=== PATIENT | female | born 1940 | race African-American/Black ===

== ENCOUNTER 2017-09-05 17:07 | Observation (INO) ==
[2017-09-05] MEDS ORDERED: DOCUSATE SODIUM 100 MG CAPSULE PO PRN (17:36)
[2017-09-05] MEDS ORDERED: ACETAMINOPHEN 325 MG TABLET PO PRN (17:36)
[2017-09-05] MEDS ORDERED: BISACODYL 5 MG TABLET PO PRN (17:36)
[2017-09-05] MEDS ORDERED: ONDANSETRON 4 MG/2 ML VIAL IV PRN (17:36)
[2017-09-05] MEDS ORDERED: ZALEPLON 5 MG CAPSULE PO PRN (17:36)
[2017-09-05] MEDS ORDERED: MORPHINE 2 MG/1 ML SYRINGE IV PRN (17:36)
[2017-09-05] MEDS ORDERED: MAGNESIUM SULF RIDER 2 GM in PREMIX 1 EACH IV PRN (17:36)
[2017-09-05] MEDS ORDERED: MAGNESIUM SULF RIDER 4 GM in PREMIX 1 EACH IV PRN (17:36)
[2017-09-05] MEDS ORDERED: diphenhydrAMINE CAP 25 MG CAPSULE PO PRN (17:45)
[2017-09-05] MEDS ORDERED: ceFAZolin 1,000 MG in SYRINGE 1 EACH IV ONE (17:48)
[2017-09-05 18:41] LABS: Basophils % 0.6 % (0.0-0.8); Eosinophils # 0.1 10*3/uL (0.0-0.87); Eosinophils % 2.2 % (0.00-10.9); Hematocrit 40.5 VOL% (35.7-47.0); Hemoglobin 12.7 GM/DL (12.0-16.0); Immature Granulocytes % 0.2 %; Immature Granulocytes Absolute 0.01 #; Lymphocytes # 1.9 10*3/uL (1.4-4.0); Lymphocytes % 36.4 % (21.3-54.2); Mean Corpuscular HGB Conc 31.4 GM/DL (32-36); Mean Corpuscular Hemoglobin 31 PG (27-34); Mean Corpuscular Volume 98.1 FL (87-102); Monocytes # 0.7 10*3/uL (0.11-0.8); Monocytes % 14.3 % (1.7-12.7); Neutrophils # 2.4 10*3/uL (1.4-7.4); Neutrophils % 46.3 % (38.7-73.9); Red Blood Count 4.13 MC/CUMM (3.8-5.5); White Blood Count 5.1 T/CUMM (4-12)
[2017-09-05 18:42] LABS: Platelet Count 97 T/CUMM (130-400)
[2017-09-05 19:08] LABS: Alanine Aminotransferase 33 U/L (13-56); Albumin 3.8 G/DL (3.4-5.0); Alkaline Phosphatase 114 U/L (45-117); Aspartate Amino Transferase 22 U/L (0-37); Bilirubin,Total < 0.39 MG/DL (0.2-1.0); Blood Urea Nitrogen 19 MG/DL (7-18); Calcium 9.4 MG/DL (8.5-10.1); Glucose 169 MG/DL (74-106); Osmolality,Calculated 293.7 MOS/KG (273-304); Potassium 4.3 MMOL/L (3.5-5.1); Sodium 145 MMOL/L (136-145); Total Protein 6.4 G/DL (6.4-8.3)
[2017-09-05 19:17] LABS: Platelet Estimate Decreased
[2017-09-06] MEDS: SODIUM CHLORIDE 0.9% 1,000 ML IV SCH ×2 (03:40→19:04)
[2017-09-06] MEDS ORDERED: ceFAZolin 1,000 MG in SYRINGE 1 EACH IV ONE ×2 (06:00)
[2017-09-06] MEDS ORDERED: diphenhydrAMINE CAP 25 MG CAPSULE PO ONE (06:00)
[2017-09-06] MEDS ORDERED: DIAZEPAM 5 MG TABLET PO ONE (06:00)
[2017-09-06] MEDS ORDERED: ceFAZolin 1,000 MG VIAL IRRIG ONE (06:00)
[2017-09-06 07:17] LABS: Basophils % 0.9 % (0.0-0.8); Eosinophils # 0.2 10*3/uL (0.0-0.87); Eosinophils % 4.2 % (0.00-10.9); Immature Granulocytes % 0.2 %; Immature Granulocytes Absolute 0.01 #; Lymphocytes # 2.3 10*3/uL (1.4-4.0); Lymphocytes % 49.7 % (21.3-54.2); Mean Corpuscular HGB Conc 31.7 GM/DL (32-36); Mean Corpuscular Hemoglobin 31 PG (27-34); Mean Corpuscular Volume 96.5 FL (87-102); Mean Platelet Volume 12.6 FL (9.6-12.0); Monocytes # 0.7 10*3/uL (0.11-0.8); Monocytes % 15.2 % (1.7-12.7); Neutrophils # 1.4 10*3/uL (1.4-7.4); Neutrophils % 29.8 % (38.7-73.9); Platelet Count 94 T/CUMM (130-400); Red Blood Count 4.25 MC/CUMM (3.8-5.5); Red Cell Distribution Width 15.9 % (9.3-17.3); White Blood Count 4.6 T/CUMM (4-12)
[2017-09-06 07:39] LABS: Giant Platelets Few; Hypochromasia 1+; Platelet Estimate Decreased
[2017-09-06 07:57] LABS: Albumin 3.7 G/DL (3.4-5.0); Bilirubin,Total 0.9 MG/DL (0.2-1.0); Calcium 9.5 MG/DL (8.5-10.1); Osmolality,Calculated 288.7 MOS/KG (273-304); Potassium 4.2 MMOL/L (3.5-5.1); Risk Ratio 2.83; Total Protein 6.6 G/DL (6.4-8.3); VLDL CHOLESTEROL 17.6 MG/DL
[2017-09-06 08:00] LABS: Calcium 9.4 MG/DL (8.5-10.1)
[2017-09-06 08:01] LABS: Osmolality,Calculated 288.7 MOS/KG (273-304); Potassium 4.2 MMOL/L (3.5-5.1)
[2017-09-06] MEDS: PANTOPRAZOLE 40 MG TABLET PO SCH (08:44)
[2017-09-06] MEDS ORDERED: LIDOCAINE 1% 20 ML VIAL ONE (11:09)
[2017-09-06] MEDS ORDERED: HEPARIN/NACL 0.9% 2 UNITS/ML 1,000 ML IV ONE (11:09)
[2017-09-06] MEDS ORDERED: ceFAZolin 1,000 MG VIAL ONE (11:09)
[2017-09-06] MEDS ORDERED: TISSUE ADHESIVE 1 EACH APPLICATOR TOP ONE (13:42)
[2017-09-06] MEDS ORDERED: oxyCODONE/ACETAMINOPHEN 5-325 MG TABLET PO PRN (14:09)
[2017-09-06] MEDS ORDERED: fentaNYL 100 MCG/2 ML VIAL ONE (15:18)
[2017-09-06] MEDS ORDERED: MIDAZOLAM 2 MG/2 ML VIAL ONE (15:18)
[2017-09-06] MEDS ORDERED: PROPOFOL 200 MG/20 ML VIAL IV ONE (15:18)
[2017-09-06] MEDS ORDERED: SODIUM CHLORIDE 0.9% 250 ML IV ONE (15:19)
[2017-09-06] MEDS ORDERED: ROCURONIUM 100 MG/10 ML VIAL IV ONE (15:19)
[2017-09-06] MEDS ORDERED: GLYCOPYRROLATE 0.4 MG/2 ML VIAL ONE (15:19)
[2017-09-06] MEDS ORDERED: NEOSTIGMINE 10 MG/10 ML VIAL ONE (15:19)
[2017-09-06] MEDS: ceFAZolin 1,000 MG in SYRINGE 1 EACH IV SCH (20:50)
[2017-09-07] MEDS: ceFAZolin 1,000 MG in SYRINGE 1 EACH IV SCH ×2 (04:11→14:12)
[2017-09-07 05:38] LABS: Basophils % 0.3 % (0.0-0.8); Eosinophils % 0.3 % (0.00-10.9); Hematocrit 35.7 VOL% (35.7-47.0); Hemoglobin 11.4 GM/DL (12.0-16.0); Immature Granulocytes % 0.3 %; Immature Granulocytes Absolute 0.02 #; Lymphocytes # 1.1 10*3/uL (1.4-4.0); Lymphocytes % 19.3 % (21.3-54.2); Mean Corpuscular HGB Conc 31.9 GM/DL (32-36); Mean Corpuscular Hemoglobin 31 PG (27-34); Mean Corpuscular Volume 96.2 FL (87-102); Mean Platelet Volume 14.1 FL (9.6-12.0); Monocytes # 0.9 10*3/uL (0.11-0.8); Monocytes % 15.7 % (1.7-12.7); Neutrophils # 3.7 10*3/uL (1.4-7.4); Neutrophils % 64.1 % (38.7-73.9); Platelet Count 72 T/CUMM (130-400); Red Blood Count 3.71 MC/CUMM (3.8-5.5); Red Cell Distribution Width 15.8 % (9.3-17.3); White Blood Count 5.9 T/CUMM (4-12)
[2017-09-07 05:46] LABS: Calcium 8.7 MG/DL (8.5-10.1); Magnesium 1.9 MG/DL (1.8-2.4); Osmolality,Calculated 295.3 MOS/KG (273-304); Potassium 3.9 MMOL/L (3.5-5.1)
[2017-09-07 06:50] LABS: Giant Platelets Few; Hypochromasia 1+; Lymphocytes 19 % (20-55); Platelet Estimate Decreased; Segmented Neutrophils 66 % (50-85); Total Cells Counted 100
[2017-09-07] MEDS ORDERED: DOCUSATE SODIUM 100 MG CAPSULE PO PRN (08:04)
[2017-09-07] MEDS ORDERED: CAMPHOR/MENTHOL LOTION 222 ML BOTTLE TOP PRN (08:04)
[2017-09-07] MEDS ORDERED: SIMETHICONE DROPS 40 MG/0.6 ML 30 ML BOTTLE PO PRN (08:04)
[2017-09-07] MEDS ORDERED: FLUTICASONE 50 MCG NASAL SPRAY 16 GM BOTTLE BOTH NARES PRN (08:04)
[2017-09-07] MEDS: ASCORBIC ACID 500 MG TABLET PO SCH ×2 (10:27→21:40)
[2017-09-07] MEDS: LOSARTAN 50 MG TABLET PO SCH (10:27)
[2017-09-07] MEDS: THEOPHYLLINE ER 300 MG TABLET PO SCH ×2 (10:27→21:40)
[2017-09-07] MEDS: POLYCARBOPHIL 625 MG TABLET PO SCH (10:27)
[2017-09-07] MEDS: PREGABALIN 100 MG CAPSULE PO SCH ×2 (10:27→21:41)
[2017-09-07] MEDS: cephALEXin 500 MG CAPSULE PO SCH ×2 (10:27→21:41)
[2017-09-07] MEDS: NEBIVOLOL 10 MG TABLET PO SCH (10:27)
[2017-09-07] MEDS: MULTIVITAMIN (CENTRUM) TABLET PO SCH (10:27)
[2017-09-07] MEDS: ALLOPURINOL 300 MG TABLET PO SCH (10:28)
[2017-09-07] MEDS: MAGNESIUM OXIDE 400 MG TABLET PO SCH (10:28)
[2017-09-07] MEDS: POTASSIUM CHLORIDE 20 MEQ TABLET PO SCH ×2 (10:28→21:40)
[2017-09-07] MEDS: FUROSEMIDE 20 MG TABLET PO SCH (10:28)
[2017-09-07] MEDS: INSULIN GLARGINE 100 UNIT/ML SUBCUT SCH ×2 (10:29→21:41)
[2017-09-07] MEDS: PANTOPRAZOLE 40 MG TABLET PO SCH (11:02)
[2017-09-07] MEDS: IPRATROPIUM 500 MCG/2.5 ML NEB RESP TX SCH ×4 (16:20→18:48)
[2017-09-08] MEDS: IPRATROPIUM 500 MCG/2.5 ML NEB RESP TX SCH ×2 (07:54→10:35)
[2017-09-08] MEDS: INSULIN GLARGINE 100 UNIT/ML SUBCUT SCH (09:29)
[2017-09-08] MEDS: ASCORBIC ACID 500 MG TABLET PO SCH (09:30)
[2017-09-08] MEDS: PREGABALIN 100 MG CAPSULE PO SCH (09:30)
[2017-09-08] MEDS: POTASSIUM CHLORIDE 20 MEQ TABLET PO SCH (09:30)
[2017-09-08] MEDS: NEBIVOLOL 10 MG TABLET PO SCH (09:31)
[2017-09-08] MEDS: cephALEXin 500 MG CAPSULE PO SCH (09:31)
[2017-09-08] MEDS: MULTIVITAMIN (CENTRUM) TABLET PO SCH (09:31)
[2017-09-08] MEDS: ALLOPURINOL 300 MG TABLET PO SCH (09:31)
[2017-09-08] MEDS: MAGNESIUM OXIDE 400 MG TABLET PO SCH (09:32)
[2017-09-08] MEDS: FUROSEMIDE 20 MG TABLET PO SCH (09:32)
[2017-09-08] MEDS: THEOPHYLLINE ER 300 MG TABLET PO SCH (09:39)
[2017-09-08 12:19] VITALS: BP 129/66
[2017-09-08] MEDS: LOSARTAN 50 MG TABLET PO SCH (12:40)
[2017-09-08] MEDS: POLYCARBOPHIL 625 MG TABLET PO SCH (12:41)
[2017-09-08] MEDS: PANTOPRAZOLE 40 MG TABLET PO SCH (12:43)
== END 2017-09-08 15:01 ==
LOC: N.TELEN
PROVIDERS: ADMIT Internal Medicine Clinical Cardiac Electrophysiology; ATTEND Internal Medicine Clinical Cardiac Electrophysiology

== ENCOUNTER 2018-05-23 10:01 | Inpatient (IN) ==
[2018-05-23] MEDS ORDERED: ALBUTEROL/IPRATROPIUM 3 ML NEB RESP TX STA (10:11)
[2018-05-23] MEDS ORDERED: methylPREDNISolone SOD SUC 125 MG/2 ML VIAL IV STA (10:13)
[2018-05-23] MEDS ORDERED: FAMOTIDINE 20 MG/2 ML VIAL IV STA (10:19)
[2018-05-23 10:48] LABS: Basophils % 0.5 % (0.0-0.8); Eosinophils # 0.2 10*3/uL (0.0-0.87); Hematocrit 26.1 VOL% (35.7-47.0); Hemoglobin 7.7 GM/DL (12.0-16.0); Immature Granulocytes % 0.2 %; Immature Granulocytes Absolute 0.01 #; Lymphocytes # 1.5 10*3/uL (1.4-4.0); Lymphocytes % 35.3 % (21.3-54.2); Mean Corpuscular HGB Conc 29.5 GM/DL (32-36); Mean Corpuscular Hemoglobin 27 PG (27-34); Mean Corpuscular Volume 92.2 FL (87-102); Mean Platelet Volume 13.8 FL (9.6-12.0); Monocytes # 0.7 10*3/uL (0.11-0.8); Monocytes % 16.6 % (1.7-12.7); Neutrophils # 1.8 10*3/uL (1.4-7.4); Neutrophils % 42.4 % (38.7-73.9); Platelet Count 72 T/CUMM (130-400); Red Blood Count 2.83 MC/CUMM (3.8-5.5); Red Cell Distribution Width 17.2 % (9.3-17.3); White Blood Count 4.2 T/CUMM (4-12)
[2018-05-23 10:49] LABS: Allen Test Positive
[2018-05-23 10:50] LABS: ABG Base Excess 10.3 MMOL/L (-2.5-2.5); ABG HCO3 34.1 MMOL/L (20-26); ABG Oxygen Saturation 99.5 % (95-100); ABG PH 7.334 (7.35-7.45)
[2018-05-23 11:12] LABS: Alanine Aminotransferase 25 U/L (13-56); Albumin 3.5 G/DL (3.4-5.0); Alkaline Phosphatase 96 U/L (45-117); Aspartate Amino Transferase 22 U/L (0-37); Bilirubin,Total < 0.39 MG/DL (0.2-1.0); Blood Urea Nitrogen 20 MG/DL (7-18); Calcium 9.4 MG/DL (8.5-10.1); Glucose 112 MG/DL (74-106); Osmolality,Calculated 297.3 MOS/KG (273-304); Potassium 3.9 MMOL/L (3.5-5.1); Sodium 148 MMOL/L (136-145); Total Protein 6.2 G/DL (6.4-8.3)
[2018-05-23 11:25] LABS: Band Neutrophils 2 % (0-10); Eosinophils 2 % (0-10); Lymphocytes 35 % (20-55); Segmented Neutrophils 48 % (50-85); Total Cells Counted 100
[2018-05-23 11:26] LABS: Anisocytosis Slight; Hypochromasia Slight; Macrocytosis 1+; Platelet Estimate Decreased; Polychromasia Slight
[2018-05-23 11:27] LABS: Giant Platelets Few
[2018-05-23 11:37] LABS: Apearance,Urine CLEAR (Clear); Bacteria,Urine Occasional /HPF (Few); Bilirubin,Urine Negative (Negative); Blood, Urine Negative (Negative); Glucose,Urine (UA) Negative (Negative); Hyaline Casts,Urine 1 /LPF (0-3); Ketones,Urine Negative (Negative); Mucus,Urine Occasional /LPF (Occasional); Nitrite,Urine Negative (Negative); Protein,Urine Negative; RBC,Urine 1 /HPF (0-4); Squamous Epithelial Cell,Urine Occasional /HPF (0-10); Urine Color Yellow (Yellow); Urine Specific Gravity 1.014 (1.001-1.035); Urine Urobilinogen < 2.0 EU/DL (0.2-1.0); WBC,Urine <1 /HPF (0-6)
[2018-05-23] MEDS ORDERED: ONDANSETRON 4 MG/2 ML VIAL IV PRN (12:34)
[2018-05-23] MEDS ORDERED: ACETAMINOPHEN 325 MG TABLET PO PRN (12:34)
[2018-05-23] MEDS ORDERED: GLUCAGON 1 MG VIAL IM PRN (12:45)
[2018-05-23] MEDS ORDERED: DEXTROSE 50% 25 GM/50 ML VIAL IV PRN (12:45)
[2018-05-23] MEDS ORDERED: CAMPHOR/MENTHOL LOTION 222 ML BOTTLE TOP PRN (12:46)
[2018-05-23] MEDS ORDERED: SIMETHICONE DROPS 40 MG/0.6 ML 30 ML BOTTLE PO PRN (12:46)
[2018-05-23] MEDS ORDERED: DOCUSATE SODIUM 100 MG CAPSULE PO PRN (12:46)
[2018-05-23] MEDS ORDERED: FLUTICASONE 50 MCG NASAL SPRAY 16 GM BOTTLE BOTH NARES PRN (12:46)
[2018-05-23] MEDS ORDERED: diphenhydrAMINE 50 MG/1 ML VIAL IV SCH (13:00)
[2018-05-23] MEDS ORDERED: IPRATROPIUM 500 MCG/2.5 ML NEB RESP TX SCH (15:00)
[2018-05-23] MEDS: POTASSIUM CHLORIDE 20 MEQ TABLET PO SCH ×2 (15:48→21:14)
[2018-05-23] MEDS: SULFACETAMIDE 10% OPH SOLN 15 ML BOTTLE BOTH EYES SCH ×3 (15:48→21:15)
[2018-05-23] MEDS: FUROSEMIDE 40 MG TABLET PO SCH (15:48)
[2018-05-23] MEDS: diphenhydrAMINE 25 MG/10 ML UDCUP PO SCH (15:49)
[2018-05-23] MEDS: INSULIN REGULAR 100 UNIT/ML SUBCUT SCH ×2 (15:54→21:15)
[2018-05-23] MEDS: ALBUTEROL/IPRATROPIUM 3 ML NEB RESP TX SCH (16:18)
[2018-05-23] MEDS: THEOPHYLLINE ER (24 HR) 300 MG CAPSULE PO SCH (18:49)
[2018-05-23] MEDS ORDERED: LEVALBUTEROL 1.25 MG/3 ML NEB RESP TX SCH (19:00)
[2018-05-23] MEDS: CHLORHEXIDINE 0.12% ORAL RINSE 60 ML BOTTLE SWISH/SPIT SCH (21:13)
[2018-05-23] MEDS: ASCORBIC ACID 500 MG TABLET PO SCH (21:13)
[2018-05-23] MEDS: CARVEDILOL 25 MG TABLET PO SCH (21:14)
[2018-05-23] MEDS: INSULIN GLARGINE 100 UNIT/ML SUBCUT SCH (21:15)
[2018-05-23] MEDS: TRAVOPROST 0.004% OPH SOLN 2.5 ML BOTTLE BOTH EYES SCH (21:15)
[2018-05-23 23:11] LABS: Hematocrit 26.1 VOL% (35.7-47.0); Hemoglobin 7.8 GM/DL (12.0-16.0)
[2018-05-24] MEDS: ALBUTEROL/IPRATROPIUM 3 ML NEB RESP TX SCH ×5 (01:13→19:35)
[2018-05-24] MEDS: diphenhydrAMINE 25 MG/10 ML UDCUP PO SCH ×2 (02:55→14:24)
[2018-05-24 05:43] LABS: Immature Granulocytes % 1.1 %; Immature Granulocytes Absolute 0.03 #; Lymphocytes # 0.6 10*3/uL (1.4-4.0); Lymphocytes % 22.5 % (21.3-54.2); Mean Corpuscular HGB Conc 30.4 GM/DL (32-36); Mean Corpuscular Hemoglobin 27 PG (27-34); Mean Corpuscular Volume 88.5 FL (87-102); Mean Platelet Volume 14.6 FL (9.6-12.0); Monocytes # 0.3 10*3/uL (0.11-0.8); Monocytes % 8.9 % (1.7-12.7); NRBC # 0.05 10*3/uL; Neutrophils # 1.9 10*3/uL (1.4-7.4); Neutrophils % 67.5 % (38.7-73.9); Red Cell Distribution Width 17.2 % (9.3-17.3)
[2018-05-24 05:47] LABS: Platelet Count 59 T/CUMM (130-400); White Blood Count 2.8 T/CUMM (4-12)
[2018-05-24 06:05] LABS: Calcium 8.9 MG/DL (8.5-10.1); Osmolality,Calculated 298.3 MOS/KG (273-304)
[2018-05-24 06:08] LABS: Hypochromasia 1+; Platelet Estimate Decreased
[2018-05-24 06:09] LABS: Macrocytosis Slight
[2018-05-24] MEDS: SULFACETAMIDE 10% OPH SOLN 15 ML BOTTLE BOTH EYES SCH ×6 (06:24→21:29)
[2018-05-24] MEDS ORDERED: SODIUM CHLORIDE 0.9% 1,000 ML IV PRN (07:25)
[2018-05-24] MEDS ORDERED: TIOTROPIUM INH SCH (09:00)
[2018-05-24] MEDS ORDERED: methylPREDNISolone SOD SUC 40 MG/1 ML VIAL IV SCH (09:00)
[2018-05-24] MEDS: INSULIN REGULAR 100 UNIT/ML SUBCUT SCH ×4 (09:30→21:37)
[2018-05-24] MEDS: FAMOTIDINE 20 MG TABLET PO SCH (09:31)
[2018-05-24] MEDS: CARVEDILOL 25 MG TABLET PO SCH ×2 (09:31→21:30)
[2018-05-24] MEDS: amLODIPine 5 MG TABLET PO SCH (09:31)
[2018-05-24] MEDS: MAGNESIUM OXIDE 400 MG TABLET PO SCH (09:31)
[2018-05-24] MEDS: methylPREDNISolone SOD SUC 40 MG/1 ML VIAL IV SCH ×2 (09:31→18:35)
[2018-05-24] MEDS: MONTELUKAST 10 MG TABLET PO SCH (09:31)
[2018-05-24] MEDS: ASPIRIN EC 325 MG TABLET PO SCH (09:31)
[2018-05-24] MEDS: PREGABALIN 100 MG CAPSULE PO SCH ×2 (09:31→21:31)
[2018-05-24] MEDS: POTASSIUM CHLORIDE 20 MEQ TABLET PO SCH ×3 (09:31→21:30)
[2018-05-24] MEDS: ALLOPURINOL 300 MG TABLET PO SCH (09:31)
[2018-05-24] MEDS: FUROSEMIDE 40 MG TABLET PO SCH ×3 (09:32→15:44)
[2018-05-24] MEDS: MULTIVITAMIN (CENTRUM) TABLET PO SCH (09:32)
[2018-05-24] MEDS: POLYCARBOPHIL 625 MG TABLET PO SCH (09:32)
[2018-05-24] MEDS: ASCORBIC ACID 500 MG TABLET PO SCH ×2 (09:32→21:31)
[2018-05-24] MEDS: LINACLOTIDE 145 MCG CAPSULE PO SCH (09:33)
[2018-05-24] MEDS: CHLORHEXIDINE 0.12% ORAL RINSE 60 ML BOTTLE SWISH/SPIT SCH ×2 (09:33→21:31)
[2018-05-24] MEDS: fentaNYL 25 MCG/HR PATCH TRANSDERM SCH (09:34)
[2018-05-24] MEDS ORDERED: SKIN HEALING OINT (AQUAPHOR) 50 GM TUBE TOP PRN (12:43)
[2018-05-24 18:40] LABS: Hematocrit 31.7 VOL% (35.7-47.0)
[2018-05-24 18:42] LABS: Hemoglobin 10.1 GM/DL (12.0-16.0)
[2018-05-24] MEDS: TRAVOPROST 0.004% OPH SOLN 2.5 ML BOTTLE BOTH EYES SCH (21:29)
[2018-05-24] MEDS: INSULIN GLARGINE 100 UNIT/ML SUBCUT SCH (21:31)
[2018-05-25] MEDS: diphenhydrAMINE 25 MG/10 ML UDCUP PO SCH ×2 (03:10→16:33)
[2018-05-25 05:17] LABS: ABG Base Excess 12.5 MMOL/L (-2.5-2.5); ABG HCO3 39.7 MMOL/L (20-26); ABG Oxygen Saturation 97.8 % (95-100); ABG PCO2 68.4 MM HG (35-48); ABG PH 7.382 (7.35-7.45); ABG PO2 116.7 MM HG (80-95); ABG TCO2 41.8 MMOL/L (23-27)
[2018-05-25 06:34] LABS: Basophils % 0.2 % (0.0-0.8); Eosinophils % 0.4 % (0.00-10.9); Hematocrit 30.4 VOL% (35.7-47.0); Hemoglobin 9.6 GM/DL (12.0-16.0); Immature Granulocytes % 0.4 %; Immature Granulocytes Absolute 0.02 #; Lymphocytes # 1.4 10*3/uL (1.4-4.0); Lymphocytes % 30.3 % (21.3-54.2); Mean Corpuscular HGB Conc 31.6 GM/DL (32-36); Mean Corpuscular Hemoglobin 28 PG (27-34); Mean Corpuscular Volume 88.6 FL (87-102); Monocytes # 0.8 10*3/uL (0.11-0.8); Monocytes % 17.2 % (1.7-12.7); NRBC # 0.02 10*3/uL; Neutrophils # 2.4 10*3/uL (1.4-7.4); Neutrophils % 51.5 % (38.7-73.9); Platelet Count 66 T/CUMM (130-400); Red Blood Count 3.43 MC/CUMM (3.8-5.5); Red Cell Distribution Width 16.1 % (9.3-17.3); White Blood Count 4.7 T/CUMM (4-12)
[2018-05-25] MEDS: SULFACETAMIDE 10% OPH SOLN 15 ML BOTTLE BOTH EYES SCH ×6 (06:44→20:36)
[2018-05-25] MEDS: methylPREDNISolone SOD SUC 40 MG/1 ML VIAL IV SCH ×2 (06:46→20:37)
[2018-05-25 07:03] LABS: Calcium 9.1 MG/DL (8.5-10.1); Osmolality,Calculated 289.7 MOS/KG (273-304)
[2018-05-25 07:35] LABS: Band Neutrophils 2 % (0-10); Lymphocytes 34 % (20-55); Nucleated Red Blood Cells 1 (0-5); Platelet Estimate Decreased; Segmented Neutrophils 49 % (50-85); Total Cells Counted 100
[2018-05-25 07:36] LABS: Hypochromasia 2+; Ovalocytes 1+; Stomatocytes 1+
[2018-05-25] MEDS: ALBUTEROL/IPRATROPIUM 3 ML NEB RESP TX SCH ×4 (08:00→19:47)
[2018-05-25] MEDS: PREGABALIN 100 MG CAPSULE PO SCH ×2 (09:35→20:39)
[2018-05-25] MEDS: FAMOTIDINE 20 MG TABLET PO SCH (09:36)
[2018-05-25] MEDS: FUROSEMIDE 40 MG TABLET PO SCH ×2 (09:37→16:36)
[2018-05-25] MEDS: amLODIPine 5 MG TABLET PO SCH (09:37)
[2018-05-25] MEDS: ASPIRIN EC 325 MG TABLET PO SCH (09:37)
[2018-05-25] MEDS: MONTELUKAST 10 MG TABLET PO SCH (09:38)
[2018-05-25] MEDS: ALLOPURINOL 300 MG TABLET PO SCH (09:40)
[2018-05-25] MEDS: ASCORBIC ACID 500 MG TABLET PO SCH ×2 (09:41→20:39)
[2018-05-25] MEDS: LINACLOTIDE 145 MCG CAPSULE PO SCH (09:41)
[2018-05-25] MEDS: POTASSIUM CHLORIDE 20 MEQ TABLET PO SCH ×3 (09:42→20:39)
[2018-05-25] MEDS: POLYCARBOPHIL 625 MG TABLET PO SCH (09:42)
[2018-05-25] MEDS: MAGNESIUM OXIDE 400 MG TABLET PO SCH (09:42)
[2018-05-25] MEDS: CHLORHEXIDINE 0.12% ORAL RINSE 60 ML BOTTLE SWISH/SPIT SCH ×2 (09:42→20:39)
[2018-05-25] MEDS: MULTIVITAMIN (CENTRUM) TABLET PO SCH (09:44)
[2018-05-25] MEDS: INSULIN REGULAR 100 UNIT/ML SUBCUT SCH ×4 (09:44→20:17)
[2018-05-25] MEDS: CARVEDILOL 25 MG TABLET PO SCH ×2 (09:44→20:39)
[2018-05-25] MEDS: THEOPHYLLINE ER (24 HR) 300 MG CAPSULE PO SCH (17:48)
[2018-05-25] MEDS: INSULIN GLARGINE 100 UNIT/ML SUBCUT SCH (20:17)
[2018-05-25] MEDS: TRAVOPROST 0.004% OPH SOLN 2.5 ML BOTTLE BOTH EYES SCH (20:36)
[2018-05-26] MEDS: diphenhydrAMINE 25 MG/10 ML UDCUP PO SCH ×2 (02:59→16:16)
[2018-05-26] MEDS: SULFACETAMIDE 10% OPH SOLN 15 ML BOTTLE BOTH EYES SCH ×6 (06:28→20:54)
[2018-05-26] MEDS: INSULIN REGULAR 100 UNIT/ML SUBCUT SCH ×4 (07:41→20:53)
[2018-05-26] MEDS: ALBUTEROL/IPRATROPIUM 3 ML NEB RESP TX SCH ×4 (07:59→19:42)
[2018-05-26] MEDS: methylPREDNISolone SOD SUC 40 MG/1 ML VIAL IV SCH ×2 (08:13→19:13)
[2018-05-26] MEDS: FUROSEMIDE 40 MG TABLET PO SCH ×2 (08:14→16:17)
[2018-05-26] MEDS ORDERED: hydrALAZINE 25 MG TABLET ONE (08:26)
[2018-05-26] MEDS: PREGABALIN 100 MG CAPSULE PO SCH ×2 (09:01→20:53)
[2018-05-26] MEDS: ASCORBIC ACID 500 MG TABLET PO SCH ×2 (09:01→20:53)
[2018-05-26] MEDS: MAGNESIUM OXIDE 400 MG TABLET PO SCH (09:01)
[2018-05-26] MEDS: POTASSIUM CHLORIDE 20 MEQ TABLET PO SCH ×3 (09:01→20:53)
[2018-05-26] MEDS: MONTELUKAST 10 MG TABLET PO SCH (09:01)
[2018-05-26] MEDS: ASPIRIN EC 325 MG TABLET PO SCH (09:02)
[2018-05-26] MEDS: POLYCARBOPHIL 625 MG TABLET PO SCH (09:02)
[2018-05-26] MEDS: FAMOTIDINE 20 MG TABLET PO SCH (09:02)
[2018-05-26] MEDS: ALLOPURINOL 300 MG TABLET PO SCH (09:02)
[2018-05-26] MEDS: amLODIPine 5 MG TABLET PO SCH (09:02)
[2018-05-26] MEDS: MULTIVITAMIN (CENTRUM) TABLET PO SCH (09:02)
[2018-05-26] MEDS: CARVEDILOL 25 MG TABLET PO SCH ×2 (09:02→20:53)
[2018-05-26] MEDS: CHLORHEXIDINE 0.12% ORAL RINSE 60 ML BOTTLE SWISH/SPIT SCH ×2 (09:05→20:54)
[2018-05-26] MEDS: LINACLOTIDE 145 MCG CAPSULE PO SCH (09:06)
[2018-05-26] MEDS: TRAVOPROST 0.004% OPH SOLN 2.5 ML BOTTLE BOTH EYES SCH (20:54)
[2018-05-26] MEDS: INSULIN GLARGINE 100 UNIT/ML SUBCUT SCH (20:54)
[2018-05-27] MEDS: diphenhydrAMINE 25 MG/10 ML UDCUP PO SCH (02:59)
[2018-05-27] MEDS: SULFACETAMIDE 10% OPH SOLN 15 ML BOTTLE BOTH EYES SCH ×3 (05:31→12:46)
[2018-05-27] MEDS: ALBUTEROL/IPRATROPIUM 3 ML NEB RESP TX SCH ×2 (08:52→11:52)
[2018-05-27] MEDS: ALLOPURINOL 300 MG TABLET PO SCH (10:08)
[2018-05-27] MEDS: LINACLOTIDE 145 MCG CAPSULE PO SCH (10:08)
[2018-05-27] MEDS: FAMOTIDINE 20 MG TABLET PO SCH (10:09)
[2018-05-27] MEDS: CARVEDILOL 25 MG TABLET PO SCH (10:09)
[2018-05-27] MEDS: ASCORBIC ACID 500 MG TABLET PO SCH (10:09)
[2018-05-27] MEDS: MONTELUKAST 10 MG TABLET PO SCH (10:10)
[2018-05-27] MEDS: MULTIVITAMIN (CENTRUM) TABLET PO SCH (10:10)
[2018-05-27] MEDS: amLODIPine 5 MG TABLET PO SCH (10:10)
[2018-05-27] MEDS: POTASSIUM CHLORIDE 20 MEQ TABLET PO SCH (10:10)
[2018-05-27] MEDS: MAGNESIUM OXIDE 400 MG TABLET PO SCH (10:10)
[2018-05-27] MEDS: POLYCARBOPHIL 625 MG TABLET PO SCH (10:10)
[2018-05-27] MEDS: FUROSEMIDE 40 MG TABLET PO SCH (10:11)
[2018-05-27] MEDS: PREGABALIN 100 MG CAPSULE PO SCH (10:11)
[2018-05-27] MEDS: methylPREDNISolone SOD SUC 40 MG/1 ML VIAL IV SCH (10:11)
[2018-05-27] MEDS: fentaNYL 25 MCG/HR PATCH TRANSDERM SCH (10:11)
[2018-05-27] MEDS: ASPIRIN EC 325 MG TABLET PO SCH (10:11)
[2018-05-27] MEDS: CHLORHEXIDINE 0.12% ORAL RINSE 60 ML BOTTLE SWISH/SPIT SCH (10:22)
[2018-05-27] MEDS: INSULIN REGULAR 100 UNIT/ML SUBCUT SCH ×2 (10:23→12:46)
[2018-05-27 12:26] VITALS: BP 163/80
== END 2018-05-27 14:45 | DRG 916 ==
LOC: EDBD → EDUNIT# → N.ED 10:01 → SUATTDRO 12:34 → N.EDINP 12:34 → N.5E 14:16
PROVIDERS: ATTEND Internal Medicine

== ENCOUNTER 2018-07-16 13:24 | Observation (INO) ==
[2018-07-16] MEDS ORDERED: ASPIRIN 325 MG TABLET PO STA (14:00)
[2018-07-16 14:36] LABS: Alanine Aminotransferase 20 U/L (13-56); Albumin 3.5 G/DL (3.4-5.0); Alkaline Phosphatase 103 U/L (45-117); Aspartate Amino Transferase 17 U/L (0-37); Bilirubin,Total < 0.39 MG/DL (0.2-1.0); Blood Urea Nitrogen 10 MG/DL (7-18); Calcium 8.9 MG/DL (8.5-10.1); Glucose 145 MG/DL (74-106); Osmolality,Calculated 293.4 MOS/KG (273-304); Potassium 3.9 MMOL/L (3.5-5.1); Sodium 147 MMOL/L (136-145); Total Protein 6.2 G/DL (6.4-8.3)
[2018-07-16 14:38] LABS: Basophils % 0.5 % (0.0-0.8); Eosinophils # 0.1 10*3/uL (0.0-0.87); Eosinophils % 2.4 % (0.00-10.9); Hematocrit 31.7 VOL% (35.7-47.0); Hemoglobin 9.4 GM/DL (12.0-16.0); Immature Granulocytes % 0.5 %; Immature Granulocytes Absolute 0.02 #; Lymphocytes # 1.2 10*3/uL (1.4-4.0); Lymphocytes % 29.6 % (21.3-54.2); Mean Corpuscular HGB Conc 29.7 GM/DL (32-36); Mean Corpuscular Hemoglobin 28 PG (27-34); Mean Corpuscular Volume 93.8 FL (87-102); Monocytes # 0.8 10*3/uL (0.11-0.8); Monocytes % 20.4 % (1.7-12.7); Neutrophils # 1.9 10*3/uL (1.4-7.4); Neutrophils % 46.6 % (38.7-73.9); Platelet Count 63 T/CUMM (130-400); Red Blood Count 3.38 MC/CUMM (3.8-5.5); Red Cell Distribution Width 18.6 % (9.3-17.3); White Blood Count 4.1 T/CUMM (4-12)
[2018-07-16] MEDS ORDERED: DEXTROSE 50% 25 GM/50 ML VIAL IV PRN (16:31)
[2018-07-16] MEDS ORDERED: GLUCAGON 1 MG VIAL IM PRN (16:31)
[2018-07-16] MEDS ORDERED: ONDANSETRON 4 MG/2 ML VIAL IV PRN (16:31)
[2018-07-16] MEDS ORDERED: CAMPHOR/MENTHOL LOTION 222 ML BOTTLE TOP PRN (16:34)
[2018-07-16] MEDS ORDERED: FLUTICASONE 50 MCG NASAL SPRAY 16 GM BOTTLE BOTH NARES PRN (16:34)
[2018-07-16] MEDS ORDERED: SIMETHICONE DROPS 40 MG/0.6 ML 30 ML BOTTLE PO PRN (16:34)
[2018-07-16] MEDS ORDERED: LABETALOL 20 MG/4 ML SYRINGE IV PRN (16:55)
[2018-07-16 17:21] LABS: Eosinophils 2 % (0-10); Lymphocytes 27 % (20-55); Segmented Neutrophils 48 % (50-85); Total Cells Counted 100
[2018-07-16 17:32] LABS: Platelet Estimate Decreased
[2018-07-16 17:34] LABS: Hypochromasia 1+
[2018-07-16 17:35] LABS: Target Cells Few
[2018-07-16] MEDS: IPRATROPIUM 500 MCG/2.5 ML NEB RESP TX SCH (19:19)
[2018-07-16] MEDS: ALBUTEROL 2.5 MG/3 ML NEB RESP TX SCH (19:19)
[2018-07-16] MEDS ORDERED: THEOPHYLLINE ER (24 HR) 300 MG CAPSULE PO SCH (21:00)
[2018-07-16] MEDS: FAMOTIDINE 20 MG TABLET PO SCH (21:38)
[2018-07-16] MEDS: POTASSIUM CHLORIDE 20 MEQ TABLET PO SCH (21:39)
[2018-07-16] MEDS: DOCUSATE SODIUM 100 MG CAPSULE PO SCH (21:39)
[2018-07-16] MEDS: FUROSEMIDE 40 MG TABLET PO SCH (21:39)
[2018-07-16] MEDS: ASCORBIC ACID 500 MG TABLET PO SCH (21:39)
[2018-07-16] MEDS: INSULIN REGULAR 100 UNIT/ML SUBCUT SCH (21:40)
[2018-07-16] MEDS: CARVEDILOL 25 MG TABLET PO SCH (21:40)
[2018-07-16] MEDS: INSULIN GLARGINE 100 UNIT/ML SUBCUT SCH (21:40)
[2018-07-16] MEDS: TRAVOPROST 0.004% OPH SOLN 2.5 ML BOTTLE BOTH EYES SCH (21:42)
[2018-07-16] MEDS: ROSUVASTATIN 20 MG TABLET PO SCH (21:42)
[2018-07-16] MEDS: CARBOXYMETHYLCELLULOSE 1% OPH SOLN BOTH EYES SCH (21:42)
[2018-07-17] MEDS: IPRATROPIUM 500 MCG/2.5 ML NEB RESP TX SCH ×4 (01:03→20:17)
[2018-07-17] MEDS: ACETAMINOPHEN 325 MG TABLET PO PRN ×2 (05:37→20:17)
[2018-07-17 05:48] LABS: Apearance,Urine Slightly Hazy (Clear); Bacteria,Urine Few /HPF (Few); Bilirubin,Urine Negative (Negative); Blood, Urine Negative (Negative); Glucose,Urine (UA) Negative (Negative); Hyaline Casts,Urine 3 /LPF (0-3); Ketones,Urine Negative (Negative); Mucus,Urine Occasional /LPF (Occasional); Nitrite,Urine Positive (Negative); Protein,Urine Negative; RBC,Urine 1 /HPF (0-4); Squamous Epithelial Cell,Urine Occasional /HPF (0-10); Urine Color Yellow (Yellow); Urine Urobilinogen < 2.0 EU/DL (0.2-1.0); WBC,Urine 5 /HPF (0-6)
[2018-07-17 06:29] LABS: Basophils % 0.4 % (0.0-0.8); Eosinophils # 0.1 10*3/uL (0.0-0.87); Hematocrit 28.8 VOL% (35.7-47.0); Hemoglobin 8.4 GM/DL (12.0-16.0); Immature Granulocytes % 0.2 %; Immature Granulocytes Absolute 0.01 #; Lymphocytes # 1.1 10*3/uL (1.4-4.0); Lymphocytes % 24.2 % (21.3-54.2); Mean Corpuscular HGB Conc 29.2 GM/DL (32-36); Mean Corpuscular Hemoglobin 27 PG (27-34); Mean Corpuscular Volume 93.5 FL (87-102); Monocytes # 0.7 10*3/uL (0.11-0.8); Neutrophils # 2.6 10*3/uL (1.4-7.4); Neutrophils % 58.2 % (38.7-73.9); Platelet Count 62 T/CUMM (130-400); Red Blood Count 3.08 MC/CUMM (3.8-5.5); Red Cell Distribution Width 18.5 % (9.3-17.3); White Blood Count 4.5 T/CUMM (4-12)
[2018-07-17 06:53] LABS: Eosinophils 1 % (0-10); Hypochromasia 1+; Lymphocytes 33 % (20-55); Platelet Estimate Decreased; Segmented Neutrophils 56 % (50-85); Total Cells Counted 100
[2018-07-17 07:07] LABS: Calcium 8.7 MG/DL (8.5-10.1); Osmolality,Calculated 290.6 MOS/KG (273-304); Potassium 3.5 MMOL/L (3.5-5.1); Risk Ratio 3.41; Thyroid Stimulating Hormone 1.1 uIU/ml (0.358-3.74); VLDL CHOLESTEROL 18.4 MG/DL
[2018-07-17] MEDS: ALBUTEROL 2.5 MG/3 ML NEB RESP TX SCH ×3 (07:50→20:17)
[2018-07-17] MEDS ORDERED: TIOTROPIUM INH SCH (09:00)
[2018-07-17] MEDS: INSULIN REGULAR 100 UNIT/ML SUBCUT SCH ×4 (09:55→20:18)
[2018-07-17] MEDS: FAMOTIDINE 20 MG TABLET PO SCH ×2 (09:57→20:16)
[2018-07-17] MEDS: CARBOXYMETHYLCELLULOSE 1% OPH SOLN BOTH EYES SCH ×2 (09:57→20:20)
[2018-07-17] MEDS: MAGNESIUM OXIDE 400 MG TABLET PO SCH (09:57)
[2018-07-17] MEDS: DOCUSATE SODIUM 100 MG CAPSULE PO SCH ×2 (09:57→20:18)
[2018-07-17] MEDS: CARVEDILOL 25 MG TABLET PO SCH ×2 (09:58→20:17)
[2018-07-17] MEDS: ALLOPURINOL 300 MG TABLET PO SCH (09:58)
[2018-07-17] MEDS: ASCORBIC ACID 500 MG TABLET PO SCH ×2 (09:58→20:16)
[2018-07-17] MEDS: FUROSEMIDE 40 MG TABLET PO SCH ×2 (09:58→20:17)
[2018-07-17] MEDS: MULTIVITAMIN (CENTRUM) TABLET PO SCH (09:58)
[2018-07-17] MEDS: MONTELUKAST 10 MG TABLET PO SCH (09:58)
[2018-07-17] MEDS: LORATADINE 10 MG TABLET PO SCH (09:59)
[2018-07-17] MEDS: ASPIRIN EC 325 MG TABLET PO SCH (09:59)
[2018-07-17] MEDS: POTASSIUM CHLORIDE 20 MEQ TABLET PO SCH ×3 (09:59→20:18)
[2018-07-17] MEDS: amLODIPine 5 MG TABLET PO SCH (09:59)
[2018-07-17] MEDS: LINACLOTIDE 145 MCG CAPSULE PO SCH (10:03)
[2018-07-17] MEDS: POLYCARBOPHIL 625 MG TABLET PO SCH (10:05)
[2018-07-17 11:37] LABS: Folate 17.8 NG/ML (5.4-24.0)
[2018-07-17 11:38] LABS: % Iron Saturation 8.9 % (18-50); Ferritin 40.7 ng/ml (8-252)
[2018-07-17] MEDS: ROSUVASTATIN 20 MG TABLET PO SCH (20:17)
[2018-07-17] MEDS: INSULIN GLARGINE 100 UNIT/ML SUBCUT SCH (20:19)
[2018-07-17] MEDS: TRAVOPROST 0.004% OPH SOLN 2.5 ML BOTTLE BOTH EYES SCH (20:21)
[2018-07-18] MEDS: IPRATROPIUM 500 MCG/2.5 ML NEB RESP TX SCH ×3 (01:47→12:36)
[2018-07-18] MEDS: ACETAMINOPHEN 325 MG TABLET PO PRN (03:24)
[2018-07-18 06:23] LABS: Basophils % 0.5 % (0.0-0.8); Eosinophils # 0.1 10*3/uL (0.0-0.87); Eosinophils % 2.1 % (0.00-10.9); Hematocrit 30.1 VOL% (35.7-47.0); Immature Granulocytes % 0.3 %; Immature Granulocytes Absolute 0.01 #; Lymphocytes # 1.2 10*3/uL (1.4-4.0); Lymphocytes % 30.7 % (21.3-54.2); Mean Corpuscular HGB Conc 29.9 GM/DL (32-36); Mean Corpuscular Hemoglobin 28 PG (27-34); Mean Corpuscular Volume 92.3 FL (87-102); Mean Platelet Volume 13.4 FL (9.6-12.0); Monocytes # 0.9 10*3/uL (0.11-0.8); Monocytes % 24.3 % (1.7-12.7); Neutrophils # 1.6 10*3/uL (1.4-7.4); Neutrophils % 42.1 % (38.7-73.9); Platelet Count 64 T/CUMM (130-400); Red Blood Count 3.26 MC/CUMM (3.8-5.5); White Blood Count 3.8 T/CUMM (4-12)
[2018-07-18 06:32] LABS: Calcium 8.9 MG/DL (8.5-10.1); Osmolality,Calculated 287.4 MOS/KG (273-304); Potassium 3.3 MMOL/L (3.5-5.1)
[2018-07-18 06:44] LABS: Eosinophils 3 % (0-10); Hypochromasia 1+; Lymphocytes 25 % (20-55); Platelet Estimate Decreased; Segmented Neutrophils 43 % (50-85); Total Cells Counted 100
[2018-07-18] MEDS: ALBUTEROL 2.5 MG/3 ML NEB RESP TX SCH ×2 (07:00→12:36)
[2018-07-18] MEDS: INSULIN REGULAR 100 UNIT/ML SUBCUT SCH (09:33)
[2018-07-18] MEDS: FAMOTIDINE 20 MG TABLET PO SCH (09:35)
[2018-07-18] MEDS: amLODIPine 5 MG TABLET PO SCH (09:36)
[2018-07-18] MEDS: ASPIRIN EC 325 MG TABLET PO SCH (09:36)
[2018-07-18] MEDS: ALLOPURINOL 300 MG TABLET PO SCH (09:36)
[2018-07-18] MEDS: FUROSEMIDE 40 MG TABLET PO SCH (09:36)
[2018-07-18] MEDS: MULTIVITAMIN (CENTRUM) TABLET PO SCH (09:36)
[2018-07-18] MEDS: POLYCARBOPHIL 625 MG TABLET PO SCH (09:36)
[2018-07-18] MEDS: MONTELUKAST 10 MG TABLET PO SCH (09:37)
[2018-07-18] MEDS: ASCORBIC ACID 500 MG TABLET PO SCH (09:37)
[2018-07-18] MEDS: LORATADINE 10 MG TABLET PO SCH (09:37)
[2018-07-18] MEDS: CARVEDILOL 25 MG TABLET PO SCH (09:37)
[2018-07-18] MEDS: CARBOXYMETHYLCELLULOSE 1% OPH SOLN BOTH EYES SCH (09:37)
[2018-07-18] MEDS: MAGNESIUM OXIDE 400 MG TABLET PO SCH (09:37)
[2018-07-18] MEDS: POTASSIUM CHLORIDE 20 MEQ TABLET PO SCH (09:38)
[2018-07-18] MEDS: DOCUSATE SODIUM 100 MG CAPSULE PO SCH (09:38)
[2018-07-18] MEDS: LINACLOTIDE 145 MCG CAPSULE PO SCH (09:38)
[2018-07-18 12:00] VITALS: BP 139/70
== END 2018-07-18 13:10 ==
LOC: EDBD → EDUNIT# → N.EDINP 13:24 → N.ED 13:24 → N.TELEN 18:33
PROVIDERS: ADMIT Internal Medicine; ATTEND Internal Medicine

== ENCOUNTER 2018-09-29 10:21 | Observation (INO) ==
[2018-09-29] MEDS ORDERED: DEXTROSE 50% 25 GM/50 ML SYRINGE IV ONE (10:31)
[2018-09-29] MEDS ORDERED: DEXTROSE 50% 25 GM/50 ML VIAL IV STA (10:37)
[2018-09-29] MEDS: DEXTROSE 5% NACL 0.45% 1,000 ML IV SCH ×2 (10:44→21:32)
[2018-09-29 11:38] LABS: Apearance,Urine CLEAR (Clear); Bacteria,Urine Moderate /HPF (Few); Bilirubin,Urine Negative (Negative); Blood, Urine Negative (Negative); Glucose,Urine (UA) >=500 mg/dL (Negative); Ketones,Urine Negative (Negative); Mucus,Urine Occasional /LPF (Occasional); Nitrite,Urine Negative (Negative); Protein,Urine 30 MG/DL; RBC,Urine <1 /HPF (0-4); Squamous Epithelial Cell,Urine Occasional /HPF (0-10); Urine Color Yellow (Yellow); Urine Specific Gravity 1.016 (1.001-1.035); Urine Urobilinogen < 2.0 EU/DL (0.2-1.0); WBC,Urine 3 /HPF (0-6)
[2018-09-29 12:17] LABS: Basophils % 0.2 % (0.0-0.8); Eosinophils # 0.1 10*3/uL (0.0-0.87); Eosinophils % 0.9 % (0.00-10.9); Hematocrit 34.8 VOL% (35.7-47.0); Hemoglobin 10.5 GM/DL (12.0-16.0); Immature Granulocytes % 0.5 %; Immature Granulocytes Absolute 0.04 #; Lymphocytes # 0.9 10*3/uL (1.4-4.0); Mean Corpuscular HGB Conc 30.2 GM/DL (32-36); Mean Corpuscular Hemoglobin 27 PG (27-34); Mean Corpuscular Volume 90.4 FL (87-102); Mean Platelet Volume 13.5 FL (9.6-12.0); Monocytes # 0.7 10*3/uL (0.11-0.8); Monocytes % 8.6 % (1.7-12.7); Neutrophils # 6.8 10*3/uL (1.4-7.4); Neutrophils % 79.8 % (38.7-73.9); Red Blood Count 3.85 MC/CUMM (3.8-5.5); Red Cell Distribution Width 18.4 % (9.3-17.3); White Blood Count 8.5 T/CUMM (4-12)
[2018-09-29 12:31] LABS: Platelet Count 70 T/CUMM (130-400)
[2018-09-29 12:54] LABS: Alanine Aminotransferase 27 U/L (13-56); Alkaline Phosphatase 105 U/L (45-117); Aspartate Amino Transferase 20 U/L (0-37); Bilirubin,Total < 0.39 MG/DL (0.2-1.0); Blood Urea Nitrogen 24 MG/DL (7-18); Calcium 9.5 MG/DL (8.5-10.1); Glucose 162 MG/DL (74-106); Osmolality,Calculated 299.4 MOS/KG (273-304); Potassium 3.2 MMOL/L (3.5-5.1); Sodium 147 MMOL/L (136-145); Total Protein 6.8 G/DL (6.4-8.3)
[2018-09-29 12:58] LABS: Hypochromasia 1+; Microcytosis 1+; Platelet Estimate Decreased; Target Cells Slight
[2018-09-29] MEDS ORDERED: ONDANSETRON 4 MG/2 ML VIAL IV PRN (14:07)
[2018-09-29] MEDS ORDERED: ACETAMINOPHEN 325 MG TABLET PO PRN (14:07)
[2018-09-29] MEDS ORDERED: GLUCAGON 1 MG VIAL IM PRN ×2 (14:11→16:58)
[2018-09-29] MEDS ORDERED: DEXTROSE 50% 25 GM/50 ML VIAL IV PRN ×2 (14:11→16:58)
[2018-09-29] MEDS: POTASSIUM CHLORIDE 20 MEQ TABLET PO PRN ×2 (21:29→23:41)
[2018-09-30] MEDS: POTASSIUM CHLORIDE 20 MEQ TABLET PO PRN ×2 (01:34→03:56)
[2018-09-30 06:00] LABS: Basophils % 0.5 % (0.0-0.8); Eosinophils # 0.1 10*3/uL (0.0-0.87); Eosinophils % 2.7 % (0.00-10.9); Hemoglobin 9.4 GM/DL (12.0-16.0); Immature Granulocytes % 0.2 %; Immature Granulocytes Absolute 0.01 #; Lymphocytes # 1.4 10*3/uL (1.4-4.0); Lymphocytes % 35.7 % (21.3-54.2); Mean Corpuscular HGB Conc 30.3 GM/DL (32-36); Mean Corpuscular Hemoglobin 27 PG (27-34); Mean Corpuscular Volume 89.9 FL (87-102); Mean Platelet Volume 13.1 FL (9.6-12.0); Monocytes # 0.8 10*3/uL (0.11-0.8); Monocytes % 18.9 % (1.7-12.7); Neutrophils # 1.7 10*3/uL (1.4-7.4); Red Blood Count 3.45 MC/CUMM (3.8-5.5); Red Cell Distribution Width 18.2 % (9.3-17.3)
[2018-09-30 06:01] LABS: Platelet Count 67 T/CUMM (130-400)
[2018-09-30 06:29] LABS: Eosinophils 3 % (0-10); Hypochromasia 1+; Lymphocytes 34 % (20-55); Platelet Estimate Decreased; Polychromasia Slight; Segmented Neutrophils 50 % (50-85); Total Cells Counted 100
[2018-09-30 06:34] LABS: Calcium 8.9 MG/DL (8.5-10.1); Potassium 4.2 MMOL/L (3.5-5.1); Risk Ratio 1.91; Thyroid Stimulating Hormone 1.55 uIU/ml (0.358-3.74); VLDL CHOLESTEROL 15.4 MG/DL
[2018-09-30] MEDS: PANTOPRAZOLE 40 MG TABLET PO SCH (09:40)
[2018-09-30] MEDS: INSULIN GLARGINE 100 UNIT/ML SUBCUT SCH (12:52)
[2018-09-30] MEDS: DEXTROSE 5% NACL 0.45% 1,000 ML IV SCH (15:12)
[2018-10-01] MEDS: DEXTROSE 5% NACL 0.45% 1,000 ML IV SCH ×2 (00:36→02:10)
[2018-10-01 08:48] VITALS: BP 161/89
[2018-10-01] MEDS ORDERED: INSULIN GLARGINE 100 UNIT/ML SUBCUT SCH (09:00)
[2018-10-01] MEDS: PANTOPRAZOLE 40 MG TABLET PO SCH (09:24)
[2018-10-01] MEDS: INSULIN GLARGINE 100 UNIT/ML SUBCUT SCH (10:58)
== END 2018-10-01 12:21 ==
LOC: EDUNIT# → EDBD → N.EDINP 10:21 → N.ED 10:21 → SUATTDRO 14:04 → N.5E 15:14
PROVIDERS: ADMIT Internal Medicine Cardiovascular Disease; ATTEND Internal Medicine

== ENCOUNTER 2018-10-26 09:56 | Inpatient (IN) ==
[2018-10-26] MEDS ORDERED: LEVOFLOXACIN INJ 750 MG in PREMIX 1 EACH IV STA (10:10)
[2018-10-26] MEDS ORDERED: methylPREDNISolone SOD SUC 125 MG/2 ML VIAL IV STA (10:10)
[2018-10-26] MEDS ORDERED: ALBUTEROL NEB SOLN 5 MG/ML 20 ML/BOTTLE CONT NEB STA (10:10)
[2018-10-26] MEDS ORDERED: FAMOTIDINE 20 MG/2 ML VIAL IV STA (10:10)
[2018-10-26] MEDS ORDERED: diphenhydrAMINE 50 MG/1 ML VIAL IV STA (10:10)
[2018-10-26 11:13] LABS: Basophils % 0.6 % (0.0-0.8); Eosinophils # 0.3 10*3/uL (0.0-0.87); Eosinophils % 4.8 % (0.00-10.9); Hematocrit 42.8 VOL% (35.7-47.0); Immature Granulocytes % 0.2 %; Immature Granulocytes Absolute 0.01 #; Lymphocytes # 1.7 10*3/uL (1.4-4.0); Lymphocytes % 30.9 % (21.3-54.2); Mean Corpuscular HGB Conc 30.4 GM/DL (32-36); Mean Corpuscular Hemoglobin 27 PG (27-34); Mean Corpuscular Volume 89.2 FL (87-102); Monocytes % 18.4 % (1.7-12.7); Neutrophils # 2.5 10*3/uL (1.4-7.4); Neutrophils % 45.1 % (38.7-73.9); Platelet Count 40 T/CUMM (130-400); Red Cell Distribution Width 17.7 % (9.3-17.3); White Blood Count 5.4 T/CUMM (4-12)
[2018-10-26 11:20] LABS: PT Patient Result 11.2 SECS; Partial Thromboplastin Time 25.2 SECS (0-40)
[2018-10-26 11:30] LABS: Alanine Aminotransferase 29 U/L (13-56); Albumin 3.9 G/DL (3.4-5.0); Alkaline Phosphatase 141 U/L (45-117); Aspartate Amino Transferase 39 U/L (0-37); Bilirubin,Total < 0.39 MG/DL (0.2-1.0); Blood Urea Nitrogen 41 MG/DL (7-18); Calcium 10.1 MG/DL (8.5-10.1); Glucose 137 MG/DL (74-106); Osmolality,Calculated 294.1 MOS/KG (273-304); Potassium 3.3 MMOL/L (3.5-5.1); Sodium 142 MMOL/L (136-145); Troponin I < 0.015 NG/ML (0.00-0.045)
[2018-10-26] MEDS ORDERED: SODIUM CHLORIDE 0.9% 1,000 ML IV STA (11:33)
[2018-10-26 11:51] LABS: Amorphous Crystals,Urine Occasional /HPF (Few); Apearance,Urine CLOUDY (Clear); Bacteria,Urine Moderate /HPF (Few); Bilirubin,Urine Negative (Negative); Blood, Urine Negative (Negative); Glucose,Urine (UA) Negative (Negative); Hyaline Casts,Urine 4 /LPF (0-3); Ketones,Urine Negative (Negative); Mucus,Urine Occasional /LPF (Occasional); Nitrite,Urine Negative (Negative); Protein,Urine 30 MG/DL; RBC,Urine 8 /HPF (0-4); Squamous Epithelial Cell,Urine Occasional /HPF (0-10); Urine Color Yellow (Yellow); Urine Specific Gravity 1.011 (1.001-1.035); Urine Urobilinogen < 2.0 EU/DL (0.2-1.0); WBC,Urine 75 /HPF (0-6)
[2018-10-26 12:01] LABS: Atypical Lymphocytes Few; Band Neutrophils 1 % (0-10); Eosinophils 6 % (0-10); Hypochromasia 1+; Lymphocytes 34 % (20-55); Segmented Neutrophils 44 % (50-85); Total Cells Counted 100
[2018-10-26 12:02] LABS: Microcytosis 1+; Platelet Estimate Decreased
[2018-10-26 13:09] LABS: Barbiturates Screen,Urine Negative (Negative); Benzodiazepines Screen,Urine Negative (Negative); Cannabinoid Screen,Urine Negative (Negative); Opiate Screen,Urine Positive (Negative); Phencyclidine Screen,Urine Negative (Negative)
[2018-10-26] MEDS ORDERED: ONDANSETRON 4 MG/2 ML VIAL IV PRN (13:11)
[2018-10-26] MEDS ORDERED: POTASSIUM CHLORIDE RIDER 20 MEQ in PREMIX 1 EACH IV PRN (13:15)
[2018-10-26] MEDS ORDERED: HEPARIN 5,000 UNIT/1 ML VIAL SUBCUT SCH (13:30)
[2018-10-26] MEDS: ALBUTEROL/IPRATROPIUM 3 ML NEB RESP TX SCH ×2 (14:28→19:45)
[2018-10-26] MEDS: ERTAPENEM 500 MG in SODIUM CHLORIDE 0.9% 100 ML IV SCH (16:04)
[2018-10-26] MEDS: DEXT 5% NACL 0.45% KCL 20 MEQ 20 MEQ/1,000 ML BAG IV SCH (16:04)
[2018-10-26] MEDS: TRAVOPROST 0.004% OPH SOLN 2.5 ML BOTTLE BOTH EYES SCH (20:46)
[2018-10-26 23:12] LABS: Calcium 9.1 MG/DL (8.5-10.1); Osmolality,Calculated 302.4 MOS/KG (273-304); Potassium 3.3 MMOL/L (3.5-5.1)
[2018-10-26] MEDS: POTASSIUM CHLORIDE RIDER 10 MEQ in PREMIX 1 EACH IV PRN (23:44)
[2018-10-27] MEDS: ALBUTEROL/IPRATROPIUM 3 ML NEB RESP TX SCH ×4 (00:37→19:33)
[2018-10-27] MEDS ORDERED: GLUCAGON 1 MG VIAL IM PRN (01:03)
[2018-10-27] MEDS ORDERED: DEXTROSE 50% 25 GM/50 ML VIAL IV PRN (01:03)
[2018-10-27] MEDS: INSULIN REGULAR 100 UNIT/ML SUBCUT SCH ×3 (01:32→21:00)
[2018-10-27] MEDS: POTASSIUM CHLORIDE RIDER 10 MEQ in PREMIX 1 EACH IV PRN ×3 (02:59→07:25)
[2018-10-27 05:20] LABS: Hematocrit 35.7 VOL% (35.7-47.0); Hemoglobin 10.8 GM/DL (12.0-16.0); Immature Granulocytes % 0.2 %; Immature Granulocytes Absolute 0.01 #; Lymphocytes # 0.9 10*3/uL (1.4-4.0); Lymphocytes % 20.1 % (21.3-54.2); Mean Corpuscular HGB Conc 30.3 GM/DL (32-36); Mean Corpuscular Hemoglobin 27 PG (27-34); Mean Corpuscular Volume 88.6 FL (87-102); Monocytes # 0.6 10*3/uL (0.11-0.8); Monocytes % 14.3 % (1.7-12.7); Neutrophils # 2.8 10*3/uL (1.4-7.4); Neutrophils % 65.4 % (38.7-73.9); Red Blood Count 4.03 MC/CUMM (3.8-5.5); Red Cell Distribution Width 17.4 % (9.3-17.3); White Blood Count 4.3 T/CUMM (4-12)
[2018-10-27 05:37] LABS: Platelet Count 35 T/CUMM (130-400)
[2018-10-27 05:38] LABS: Calcium 9.1 MG/DL (8.5-10.1); Osmolality,Calculated 301.3 MOS/KG (273-304); Potassium 3.7 MMOL/L (3.5-5.1)
[2018-10-27 05:44] LABS: Platelet Estimate Decreased; Polychromasia Few
[2018-10-27 05:49] LABS: Free T4 (Free Thyroxine) 0.66 NG/DL (0.76-1.46); Thyroid Stimulating Hormone 0.506 uIU/ml (0.358-3.74)
[2018-10-27] MEDS ORDERED: CARBOXYMETHYLCELLULOSE 1% OPH SOLN BOTH EYES PRN (17:09)
[2018-10-27] MEDS: ERTAPENEM 500 MG in SODIUM CHLORIDE 0.9% 100 ML IV SCH (17:58)
[2018-10-27] MEDS: TRAVOPROST 0.004% OPH SOLN 2.5 ML BOTTLE BOTH EYES SCH (21:50)
[2018-10-28] MEDS: INSULIN REGULAR 100 UNIT/ML SUBCUT SCH ×4 (00:30→17:52)
[2018-10-28] MEDS: ALBUTEROL/IPRATROPIUM 3 ML NEB RESP TX SCH ×4 (00:39→19:14)
[2018-10-28] MEDS: DEXT 5% NACL 0.45% KCL 20 MEQ 20 MEQ/1,000 ML BAG IV SCH (06:14)
[2018-10-28 14:07] LABS: Basophils % 0.4 % (0.0-0.8); Eosinophils # 0.1 10*3/uL (0.0-0.87); Eosinophils % 2.5 % (0.00-10.9); Hematocrit 32.3 VOL% (35.7-47.0); Hemoglobin 9.9 GM/DL (12.0-16.0); Immature Granulocytes % 0.4 %; Immature Granulocytes Absolute 0.02 #; Lymphocytes # 1.5 10*3/uL (1.4-4.0); Lymphocytes % 26.2 % (21.3-54.2); Mean Corpuscular HGB Conc 30.7 GM/DL (32-36); Mean Corpuscular Hemoglobin 27 PG (27-34); Mean Corpuscular Volume 88.7 FL (87-102); Monocytes # 0.9 10*3/uL (0.11-0.8); Monocytes % 15.3 % (1.7-12.7); Neutrophils # 3.1 10*3/uL (1.4-7.4); Neutrophils % 55.2 % (38.7-73.9); Red Blood Count 3.64 MC/CUMM (3.8-5.5); Red Cell Distribution Width 17.5 % (9.3-17.3); White Blood Count 5.5 T/CUMM (4-12)
[2018-10-28 14:11] LABS: Platelet Count 35 T/CUMM (130-400)
[2018-10-28 14:26] LABS: Potassium 3.1 MMOL/L (3.5-5.1)
[2018-10-28] MEDS: ERTAPENEM 500 MG in SODIUM CHLORIDE 0.9% 100 ML IV SCH (15:02)
[2018-10-28 16:30] LABS: Eosinophils 1 % (0-10); Hypochromasia 3+; Lymphocytes 31 % (20-55); Segmented Neutrophils 58 % (50-85); Total Cells Counted 100
[2018-10-28 16:31] LABS: Microcytosis 1+
[2018-10-28 16:32] LABS: Platelet Estimate Decreased; Stomatocytes Few; Target Cells 1+
[2018-10-28] MEDS: TRAVOPROST 0.004% OPH SOLN 2.5 ML BOTTLE BOTH EYES SCH (21:29)
[2018-10-29] MEDS: ALBUTEROL/IPRATROPIUM 3 ML NEB RESP TX SCH ×4 (00:12→19:00)
[2018-10-29] MEDS: INSULIN REGULAR 100 UNIT/ML SUBCUT SCH ×5 (00:50→23:32)
[2018-10-29] MEDS: DEXT 5% NACL 0.45% KCL 20 MEQ 20 MEQ/1,000 ML BAG IV SCH (02:34)
[2018-10-29 06:53] LABS: Basophils % 0.2 % (0.0-0.8); Eosinophils # 0.2 10*3/uL (0.0-0.87); Eosinophils % 3.3 % (0.00-10.9); Hemoglobin 10.5 GM/DL (12.0-16.0); Immature Granulocytes % 0.2 %; Immature Granulocytes Absolute 0.01 #; Lymphocytes % 36.9 % (21.3-54.2); Mean Corpuscular HGB Conc 30.9 GM/DL (32-36); Mean Corpuscular Hemoglobin 27 PG (27-34); Mean Corpuscular Volume 87.6 FL (87-102); Monocytes # 0.9 10*3/uL (0.11-0.8); Monocytes % 17.3 % (1.7-12.7); Neutrophils # 2.3 10*3/uL (1.4-7.4); Neutrophils % 42.1 % (38.7-73.9); Red Blood Count 3.88 MC/CUMM (3.8-5.5); Red Cell Distribution Width 17.5 % (9.3-17.3); White Blood Count 5.4 T/CUMM (4-12)
[2018-10-29 06:55] LABS: Platelet Count 36 T/CUMM (130-400)
[2018-10-29 07:14] LABS: Calcium 9.4 MG/DL (8.5-10.1); Osmolality,Calculated 298.7 MOS/KG (273-304); Potassium 2.8 MMOL/L (3.5-5.1)
[2018-10-29 07:17] LABS: Atypical Lymphocytes Few; Eosinophils 4 % (0-10); Hypochromasia 1+; Lymphocytes 42 % (20-55); Microcytosis Slight; Platelet Estimate Decreased; Segmented Neutrophils 43 % (50-85); Total Cells Counted 100
[2018-10-29] MEDS: cefTRIAXone 1,000 MG in SYRINGE 1 EACH IV SCH (09:05)
[2018-10-29] MEDS: POTASSIUM CHLORIDE RIDER 10 MEQ in PREMIX 1 EACH IV PRN (09:05)
[2018-10-29] MEDS: POTASSIUM CHLORIDE 20 MEQ TABLET PO SCH ×3 (11:12→23:32)
[2018-10-29] MEDS ORDERED: LACTULOSE 20 GM/30 ML UDCUP PO ONE (17:44)
[2018-10-29] MEDS: TRAVOPROST 0.004% OPH SOLN 2.5 ML BOTTLE BOTH EYES SCH (21:43)
[2018-10-30] MEDS: INSULIN REGULAR 100 UNIT/ML SUBCUT SCH ×2 (06:05→13:06)
[2018-10-30] MEDS: ALBUTEROL/IPRATROPIUM 3 ML NEB RESP TX SCH ×3 (07:30→13:20)
[2018-10-30 07:49] LABS: Calcium 9.3 MG/DL (8.5-10.1); Potassium 3.6 MMOL/L (3.5-5.1)
[2018-10-30] MEDS: cefTRIAXone 1,000 MG in SYRINGE 1 EACH IV SCH (08:58)
[2018-10-30 13:46] VITALS: BP 142/66
== END 2018-10-30 13:48 | DRG 682 ==
LOC: EDBD → EDUNIT# → N.ED 09:56 → SUATTDRO 12:36 → N.EDINP 12:36 → N.5E 12:53
PROVIDERS: ADMIT Internal Medicine; ATTEND Internal Medicine

== ENCOUNTER 2019-10-15 08:59 | Observation (INO) ==
[2019-10-15] MEDS ORDERED: ASPIRIN 325 MG TABLET PO STA (09:20)
[2019-10-15] MEDS ORDERED: ENOXAPARIN 100 MG/ML SYRINGE SUBCUT STA (09:20)
[2019-10-15] MEDS ORDERED: NITROGLYCERIN 2% OINT 1 INCH/GM PACK TOP STA (09:20)
[2019-10-15] MEDS ORDERED: ALUM/MAG/SIMETH/LIDO VISC 1:1 30 ML BOTTLE PO STA (09:20)
[2019-10-15] MEDS ORDERED: ONDANSETRON 4 MG/2 ML VIAL IV STA (09:20)
[2019-10-15 09:59] LABS: Basophils % 0.7 % (0.0-0.8); Eosinophils # 0.3 10*3/uL (0.0-0.87); Eosinophils % 5.6 % (0.00-10.9); Hematocrit 37.3 VOL% (35.7-47.0); Hemoglobin 11.6 GM/DL (12.0-16.0); Immature Granulocytes % 0.3 %; Immature Granulocytes Absolute 0.02 #; Lymphocytes # 1.9 10*3/uL (1.4-4.0); Lymphocytes % 32.1 % (21.3-54.2); Mean Corpuscular HGB Conc 31.1 GM/DL (32-36); Mean Corpuscular Volume 94.4 FL (87-102); Mean Platelet Volume 14.4 FL (9.6-12.0); Monocytes % 17.4 % (1.7-12.7); Neutrophils % 43.9 % (38.7-73.9); Red Blood Count 3.95 MC/CUMM (3.8-5.5); Red Cell Distribution Width 14.5 % (9.3-17.3); White Blood Count 6.1 T/CUMM (4-12)
[2019-10-15 10:00] LABS: Platelet Count 68 T/CUMM (130-400)
[2019-10-15 10:17] LABS: Eosinophils 7 % (0-10); Hypochromasia 1+; Lymphocytes 35 % (20-55); Platelet Estimate Decreased; Segmented Neutrophils 47 % (50-85); Total Cells Counted 100
[2019-10-15 10:20] LABS: Alanine Aminotransferase 21 U/L (13-56); Albumin 3.4 G/DL (3.4-5.0); Alkaline Phosphatase 130 U/L (45-117); Aspartate Amino Transferase 32 U/L (0-37); Bilirubin,Total < 0.39 MG/DL (0.2-1.0); Blood Urea Nitrogen 18 MG/DL (7-18); Calcium 9.9 MG/DL (8.5-10.1); Glucose 93 MG/DL (74-106); Osmolality,Calculated 274.8 MOS/KG (273-304); Total Protein 7.4 G/DL (6.4-8.3)
[2019-10-15 10:21] LABS: Estimated Glom Filtration Rate 0 ML/MIN
[2019-10-15 10:33] LABS: INR 0.9; PT Patient Result 10.2 SECS (9.6-12.2); Partial Thromboplastin Time 24.4 SECS (20.8-36.0)
[2019-10-15 11:13] LABS: Apearance,Urine CLEAR (Clear); Bilirubin,Urine Negative (Negative); Blood, Urine Negative (Negative); Glucose,Urine (UA) Negative (Negative); Ketones,Urine Negative (Negative); Nitrite,Urine Negative (Negative); Protein,Urine 30 MG/DL; Squamous Epithelial Cell,Urine Occasional /HPF (0-10); Urine Color Yellow (Yellow); Urine Specific Gravity 1.017 (1.001-1.035); WBC,Urine 1 /HPF (0-6)
[2019-10-15] MEDS ORDERED: ACETAMINOPHEN 325 MG TABLET PO PRN (11:32)
[2019-10-15] MEDS ORDERED: BISACODYL 5 MG TABLET PO PRN (11:32)
[2019-10-15] MEDS ORDERED: NITROGLYCERIN SL 0.4 MG TABLET SL PRN (11:32)
[2019-10-15] MEDS ORDERED: GLUCAGON 1 MG VIAL IM PRN ×2 (11:32→14:58)
[2019-10-15] MEDS ORDERED: DEXTROSE 10% 25 GM/250 ML BAG IV PRN (11:32)
[2019-10-15] MEDS ORDERED: MORPHINE 4 MG/1 ML VIAL IV PRN (11:32)
[2019-10-15] MEDS ORDERED: ONDANSETRON 4 MG/2 ML VIAL IV PRN (11:32)
[2019-10-15] MEDS ORDERED: MAGNESIUM HYDROXIDE SUSP 30 ML UDCUP PO PRN (11:32)
[2019-10-15] MEDS ORDERED: ALBUTEROL/IPRATROPIUM 3 ML NEB RESP TX PRN (11:37)
[2019-10-15] MEDS ORDERED: ENOXAPARIN 40 MG/0.4 ML SYRINGE SUBCUT SCH (12:00)
[2019-10-15] MEDS ORDERED: THEOPHYLLINE ER 300 MG TABLET PO SCH (12:00)
[2019-10-15 13:05] LABS: Risk Ratio 2.06
[2019-10-15] MEDS ORDERED: DEXTROSE 50% 25 GM/50 ML VIAL IV PRN (14:58)
[2019-10-15] MEDS: POTASSIUM CHLORIDE 20 MEQ TABLET PO SCH ×2 (15:24→21:43)
[2019-10-15] MEDS: INSULIN LISPRO 100 UNIT/ML SUBCUT SCH ×2 (16:25→21:43)
[2019-10-15 20:32] LABS: Troponin I < 0.015 NG/ML (0.00-0.045)
[2019-10-15] MEDS ORDERED: TRAVOPROST 0.004% OPH SOLN 2.5 ML BOTTLE BOTH EYES SCH (21:00)
[2019-10-15] MEDS ORDERED: MONTELUKAST 10 MG TABLET PO SCH (21:00)
[2019-10-15] MEDS ORDERED: FUROSEMIDE 80 MG TABLET PO SCH (21:00)
[2019-10-15] MEDS ORDERED: ROSUVASTATIN 20 MG TABLET PO SCH (21:00)
[2019-10-15] MEDS ORDERED: INSULIN GLARGINE 100 UNIT/ML SUBCUT SCH (21:00)
[2019-10-15] MEDS: MAGNESIUM OXIDE 400 MG TABLET PO SCH (21:42)
[2019-10-15] MEDS: CARBOXYMETHYLCELLULOSE 1% OPH SOLN BOTH EYES SCH (21:43)
[2019-10-15] MEDS: FUROSEMIDE 40 MG/4 ML VIAL IV SCH (21:43)
[2019-10-15] MEDS: BACLOFEN 10 MG TABLET PO SCH (21:43)
[2019-10-16 06:05] LABS: Calcium 9.5 MG/DL (8.5-10.1); Osmolality,Calculated 291.1 MOS/KG (273-304)
[2019-10-16 08:29] VITALS: BP 132/54
[2019-10-16] MEDS: MAGNESIUM OXIDE 400 MG TABLET PO SCH (08:46)
[2019-10-16] MEDS: BACLOFEN 10 MG TABLET PO SCH (08:47)
[2019-10-16] MEDS: POTASSIUM CHLORIDE 20 MEQ TABLET PO SCH (08:47)
[2019-10-16] MEDS: CARBOXYMETHYLCELLULOSE 1% OPH SOLN BOTH EYES SCH (08:49)
[2019-10-16] MEDS: INSULIN LISPRO 100 UNIT/ML SUBCUT SCH (08:49)
[2019-10-16] MEDS: FUROSEMIDE 40 MG/4 ML VIAL IV SCH (08:49)
[2019-10-16] MEDS ORDERED: SPIRONOLACTONE 25 MG TABLET PO SCH (09:00)
[2019-10-16] MEDS ORDERED: allopurinoL 100 MG TABLET PO SCH (09:00)
[2019-10-16] MEDS ORDERED: MULTIVITAMIN (CENTRUM) TABLET PO SCH (09:00)
[2019-10-16] MEDS ORDERED: CLOPIDOGREL 75 MG TABLET PO SCH (09:00)
[2019-10-16] MEDS ORDERED: PANTOPRAZOLE 40 MG TABLET PO SCH (09:00)
[2019-10-16] MEDS ORDERED: LINACLOTIDE 145 MCG CAPSULE PO SCH (09:00)
[2019-10-16] MEDS ORDERED: PARoxetine 10 MG TABLET PO SCH (09:00)
[2019-10-16] MEDS ORDERED: ASPIRIN EC 325 MG TABLET PO SCH (09:00)
[2019-10-16] MEDS ORDERED: DOCUSATE SODIUM 100 MG CAPSULE PO SCH (09:00)
== END 2019-10-16 11:20 ==
LOC: EDBD → EDUNIT# → N.EDINP 08:59 → N.ED 08:59 → N.TELES 13:01
PROVIDERS: ADMIT Internal Medicine; ATTEND Internal Medicine

== ENCOUNTER 2020-01-12 09:38 | Inpatient (IN) ==
[2020-01-12 11:10] LABS: Basophils % 0.7 % (0.0-0.8); Eosinophils # 0.1 10*3/uL (0.0-0.87); Eosinophils % 2.4 % (0.00-10.9); Hematocrit 39.1 VOL% (35.7-47.0); Hemoglobin 12.1 GM/DL (12.0-16.0); Immature Granulocytes % 0.4 %; Immature Granulocytes Absolute 0.02 #; Lymphocytes # 1.8 10*3/uL (1.4-4.0); Lymphocytes % 33.3 % (21.3-54.2); Mean Corpuscular HGB Conc 30.9 GM/DL (32-36); Mean Corpuscular Volume 91.4 FL (87-102); Mean Platelet Volume 12.2 FL (9.6-12.0); Monocytes % 18.2 % (1.7-12.7); Platelet Count 135 T/CUMM (130-400); Red Blood Count 4.28 MC/CUMM (3.8-5.5); Red Cell Distribution Width 14.9 % (9.3-17.3); White Blood Count 5.4 T/CUMM (4-12)
[2020-01-12 11:18] LABS: PT Patient Result 10.8 SECS (9.8-11.9); Partial Thromboplastin Time 27.9 SECS (23.9-33.8)
[2020-01-12 11:28] LABS: Eosinophils 1 % (0-10); Lymphocytes 32 % (20-55); Platelet Estimate Adequate; Segmented Neutrophils 46 % (50-85); Total Cells Counted 100
[2020-01-12 11:29] LABS: Hypochromasia 1+
[2020-01-12 11:34] LABS: Albumin 3.3 G/DL (3.4-5.0); Bilirubin,Total 0.4 MG/DL (0.2-1.0); Calcium 9.9 MG/DL (8.5-10.1); Osmolality,Calculated 281.5 MOS/KG (273-304)
[2020-01-12 11:35] LABS: Troponin I < 0.015 NG/ML (0.00-0.045)
[2020-01-12] MEDS ORDERED: MAGNESIUM SULF RIDER 2 GM in PREMIX 1 EACH IV PRN (13:02)
[2020-01-12] MEDS ORDERED: MAGNESIUM SULF RIDER 4 GM in PREMIX 1 EACH IV PRN (13:02)
[2020-01-12] MEDS ORDERED: ONDANSETRON 4 MG/2 ML VIAL IV PRN (13:07)
[2020-01-12] MEDS ORDERED: ZALEPLON 5 MG CAPSULE PO PRN (13:07)
[2020-01-12] MEDS ORDERED: hydrALAZINE 20 MG/1 ML VIAL IV PRN (13:07)
[2020-01-12] MEDS ORDERED: DEXTROSE 50% 25 GM/50 ML VIAL IV PRN (13:07)
[2020-01-12] MEDS ORDERED: GLUCAGON 1 MG VIAL IM PRN (13:07)
[2020-01-12] MEDS ORDERED: BISACODYL 5 MG TABLET PO PRN (13:11)
[2020-01-12] MEDS ORDERED: AMIODARONE INJ 150 MG in DEXTROSE 5% 100 ML IV ONE (13:11)
[2020-01-12] MEDS ORDERED: NITROGLYCERIN SL 0.4 MG TABLET SL PRN (13:11)
[2020-01-12] MEDS ORDERED: AMIODARONE INJ 450 MG in DEXTROSE 5% 241 ML IV SCH (13:30)
[2020-01-12 14:57] LABS: Troponin I < 0.015 NG/ML (0.00-0.045)
[2020-01-12] MEDS: ENOXAPARIN 40 MG/0.4 ML SYRINGE SUBCUT SCH (16:10)
[2020-01-12] MEDS: INSULIN REGULAR 100 UNIT/ML SUBCUT SCH ×2 (16:11→22:06)
[2020-01-12] MEDS: METOPROLOL TARTRATE 50 MG TABLET PO SCH ×2 (16:11→22:04)
[2020-01-12 16:44] LABS: Troponin I < 0.015 NG/ML (0.00-0.045)
[2020-01-12] MEDS: AMIODARONE INJ 450 MG in DEXTROSE 5% 241 ML IV SCH ×2 (20:07→23:54)
[2020-01-12] MEDS: ACETAMINOPHEN 325 MG TABLET PO PRN (20:32)
[2020-01-12] MEDS ORDERED: MENTHOL TOP SCH (21:00)
[2020-01-12] MEDS ORDERED: MAGNESIUM OXIDE 400 MG TABLET PO SCH (21:00)
[2020-01-12] MEDS: ROSUVASTATIN 20 MG TABLET PO SCH (22:04)
[2020-01-12] MEDS: MONTELUKAST 10 MG TABLET PO SCH (22:04)
[2020-01-12] MEDS: BACLOFEN 10 MG TABLET PO SCH (22:04)
[2020-01-12] MEDS: INSULIN GLARGINE 100 UNIT/ML SUBCUT SCH (22:05)
[2020-01-12] MEDS: TRAVOPROST 0.004% OPH SOLN 2.5 ML BOTTLE BOTH EYES SCH (22:06)
[2020-01-12] MEDS: CARBOXYMETHYLCELLULOSE 1% OPH SOLN BOTH EYES SCH (22:06)
[2020-01-12] MEDS: SODIUM CHLORIDE 0.45% 1,000 ML IV SCH ×2 (22:20→23:53)
[2020-01-13] MEDS: AMIODARONE INJ 450 MG in DEXTROSE 5% 241 ML IV SCH ×3 (01:46→13:50)
[2020-01-13 05:47] LABS: Basophils % 0.8 % (0.0-0.8); Eosinophils # 0.1 10*3/uL (0.0-0.87); Eosinophils % 2.5 % (0.00-10.9); Hematocrit 35.6 VOL% (35.7-47.0); Hemoglobin 10.8 GM/DL (12.0-16.0); Immature Granulocytes % 0.3 %; Immature Granulocytes Absolute 0.01 #; Lymphocytes # 1.3 10*3/uL (1.4-4.0); Lymphocytes % 32.4 % (21.3-54.2); Mean Corpuscular HGB Conc 30.3 GM/DL (32-36); Mean Corpuscular Volume 92.5 FL (87-102); Mean Platelet Volume 12.3 FL (9.6-12.0); Monocytes % 15.7 % (1.7-12.7); Neutrophils % 48.3 % (38.7-73.9); Platelet Count 133 T/CUMM (130-400); Red Blood Count 3.85 MC/CUMM (3.8-5.5); Red Cell Distribution Width 14.6 % (9.3-17.3)
[2020-01-13 06:06] LABS: Hypochromasia 1+
[2020-01-13 06:07] LABS: Microcytosis Slight; Ovalocytes Slight
[2020-01-13 06:15] LABS: Albumin 2.4 G/DL (3.4-5.0); Bilirubin,Total 0.4 MG/DL (0.2-1.0); Calcium 9.2 MG/DL (8.5-10.1); Osmolality,Calculated 281.1 MOS/KG (273-304); Total Protein 6.4 G/DL (6.4-8.3)
[2020-01-13] MEDS ORDERED: CLOPIDOGREL 75 MG TABLET PO SCH (09:00)
[2020-01-13] MEDS: INSULIN REGULAR 100 UNIT/ML SUBCUT SCH ×4 (09:05→20:59)
[2020-01-13] MEDS: MULTIVITAMIN (CENTRUM) TABLET PO SCH (09:06)
[2020-01-13] MEDS: DOCUSATE SODIUM 100 MG CAPSULE PO SCH (09:06)
[2020-01-13] MEDS: INSULIN LISPRO 100 UNIT/ML SUBCUT SCH (09:06)
[2020-01-13] MEDS: ASPIRIN CHEW 81 MG TABLET PO SCH (09:06)
[2020-01-13] MEDS: LINACLOTIDE 145 MCG CAPSULE PO SCH (09:07)
[2020-01-13] MEDS: BACLOFEN 10 MG TABLET PO SCH ×2 (09:07→20:58)
[2020-01-13] MEDS: ENOXAPARIN 40 MG/0.4 ML SYRINGE SUBCUT SCH (09:07)
[2020-01-13] MEDS: METOPROLOL TARTRATE 50 MG TABLET PO SCH ×2 (09:07→20:58)
[2020-01-13] MEDS: POTASSIUM CHLORIDE 20 MEQ TABLET PO SCH (09:07)
[2020-01-13] MEDS: PANTOPRAZOLE 40 MG TABLET PO SCH (09:08)
[2020-01-13] MEDS: THEOPHYLLINE ER 300 MG TABLET PO SCH (09:08)
[2020-01-13] MEDS: allopurinoL 100 MG TABLET PO SCH (09:08)
[2020-01-13] MEDS: CARBOXYMETHYLCELLULOSE 1% OPH SOLN BOTH EYES SCH ×2 (10:13→20:58)
[2020-01-13] MEDS: SPIRONOLACTONE 25 MG TABLET PO SCH (10:38)
[2020-01-13] MEDS: ENOXAPARIN 80 MG/0.8 ML SYRINGE SUBCUT SCH (14:53)
[2020-01-13] MEDS: FUROSEMIDE 80 MG TABLET PO SCH (16:53)
[2020-01-13 19:08] LABS: Apearance,Urine Slightly Hazy (Clear); Bacteria,Urine Occasional /HPF (Few); Bilirubin,Urine Negative (Negative); Blood, Urine Negative (Negative); Glucose,Urine (UA) Negative (Negative); Ketones,Urine Negative (Negative); Nitrite,Urine Negative (Negative); Protein,Urine Negative; RBC,Urine 2 /HPF (0-4); Squamous Epithelial Cell,Urine Occasional /HPF (0-10); Urine Color Yellow (Yellow); Urine Specific Gravity 1.004 (1.001-1.035); Urine Urobilinogen < 2.0 EU/DL (0.2-1.0); WBC,Urine 2 /HPF (0-6)
[2020-01-13] MEDS: AMIODARONE 200 MG TABLET PO SCH (20:57)
[2020-01-13] MEDS: MONTELUKAST 10 MG TABLET PO SCH (20:57)
[2020-01-13] MEDS: ROSUVASTATIN 20 MG TABLET PO SCH (20:57)
[2020-01-13] MEDS: TRAVOPROST 0.004% OPH SOLN 2.5 ML BOTTLE BOTH EYES SCH (20:58)
[2020-01-13] MEDS: INSULIN GLARGINE 100 UNIT/ML SUBCUT SCH (20:59)
[2020-01-14] MEDS: AMIODARONE INJ 450 MG in DEXTROSE 5% 241 ML IV SCH (03:26)
[2020-01-14] MEDS: ENOXAPARIN 80 MG/0.8 ML SYRINGE SUBCUT SCH ×3 (03:33→20:55)
[2020-01-14 06:33] LABS: Basophils # 0.1 10*3/uL (0.0-0.2); Basophils % 1.1 % (0.0-0.8); Eosinophils # 0.2 10*3/uL (0.0-0.87); Eosinophils % 3.3 % (0.00-10.9); Hematocrit 35.8 VOL% (35.7-47.0); Hemoglobin 10.7 GM/DL (12.0-16.0); Immature Granulocytes % 0.2 %; Immature Granulocytes Absolute 0.01 #; Lymphocytes # 1.9 10*3/uL (1.4-4.0); Lymphocytes % 42.3 % (21.3-54.2); Mean Corpuscular HGB Conc 29.9 GM/DL (32-36); Mean Corpuscular Volume 93.2 FL (87-102); Mean Platelet Volume 13.3 FL (9.6-12.0); Monocytes % 15.9 % (1.7-12.7); Neutrophils % 37.2 % (38.7-73.9); Platelet Count 134 T/CUMM (130-400); Red Blood Count 3.84 MC/CUMM (3.8-5.5); Red Cell Distribution Width 14.6 % (9.3-17.3); White Blood Count 4.5 T/CUMM (4-12)
[2020-01-14 06:54] LABS: Eosinophils 4 % (0-10); Lymphocytes 41 % (20-55); Segmented Neutrophils 44 % (50-85); Total Cells Counted 100
[2020-01-14 06:55] LABS: Atypical Lymphocytes Few; Hypochromasia 1+; Microcytosis Slight; Platelet Estimate Adequate
[2020-01-14 07:00] LABS: Calcium 9.8 MG/DL (8.5-10.1); Osmolality,Calculated 280.4 MOS/KG (273-304)
[2020-01-14] MEDS ORDERED: GLUCAGON 1 MG VIAL IM PRN (08:09)
[2020-01-14] MEDS ORDERED: DEXTROSE 50% 25 GM/50 ML VIAL IV PRN (08:09)
[2020-01-14] MEDS: INSULIN REGULAR 100 UNIT/ML SUBCUT SCH ×4 (08:28→20:54)
[2020-01-14] MEDS: LINACLOTIDE 145 MCG CAPSULE PO SCH (09:23)
[2020-01-14] MEDS: AMIODARONE 200 MG TABLET PO SCH ×2 (09:24→20:52)
[2020-01-14] MEDS: FUROSEMIDE 80 MG TABLET PO SCH ×2 (09:24→16:18)
[2020-01-14] MEDS: DOCUSATE SODIUM 100 MG CAPSULE PO SCH (09:24)
[2020-01-14] MEDS: SPIRONOLACTONE 25 MG TABLET PO SCH (09:24)
[2020-01-14] MEDS: PANTOPRAZOLE 40 MG TABLET PO SCH (09:24)
[2020-01-14] MEDS: ASPIRIN CHEW 81 MG TABLET PO SCH (09:24)
[2020-01-14] MEDS: POTASSIUM CHLORIDE 20 MEQ TABLET PO SCH ×3 (09:24→20:51)
[2020-01-14] MEDS: MULTIVITAMIN (CENTRUM) TABLET PO SCH (09:25)
[2020-01-14] MEDS: CARBOXYMETHYLCELLULOSE 1% OPH SOLN BOTH EYES SCH ×2 (09:25→20:56)
[2020-01-14] MEDS: allopurinoL 100 MG TABLET PO SCH (09:25)
[2020-01-14] MEDS: METOPROLOL TARTRATE 50 MG TABLET PO SCH ×2 (09:25→20:51)
[2020-01-14] MEDS: BACLOFEN 10 MG TABLET PO SCH ×2 (09:26→20:52)
[2020-01-14] MEDS: INSULIN LISPRO 100 UNIT/ML SUBCUT SCH (09:26)
[2020-01-14] MEDS: ACETAMINOPHEN 325 MG TABLET PO PRN (20:49)
[2020-01-14] MEDS: ROSUVASTATIN 20 MG TABLET PO SCH (20:51)
[2020-01-14] MEDS: MONTELUKAST 10 MG TABLET PO SCH (20:52)
[2020-01-14] MEDS: INSULIN GLARGINE 100 UNIT/ML SUBCUT SCH (20:53)
[2020-01-14] MEDS: TRAVOPROST 0.004% OPH SOLN 2.5 ML BOTTLE BOTH EYES SCH (20:56)
[2020-01-15] MEDS: ACETAMINOPHEN 325 MG TABLET PO PRN (05:35)
[2020-01-15 06:10] LABS: Basophils % 0.9 % (0.0-0.8); Eosinophils # 0.2 10*3/uL (0.0-0.87); Eosinophils % 3.7 % (0.00-10.9); Hematocrit 38.4 VOL% (35.7-47.0); Hemoglobin 11.8 GM/DL (12.0-16.0); Immature Granulocytes % 0.4 %; Immature Granulocytes Absolute 0.02 #; Lymphocytes # 2.1 10*3/uL (1.4-4.0); Lymphocytes % 45.7 % (21.3-54.2); Mean Corpuscular HGB Conc 30.7 GM/DL (32-36); Mean Corpuscular Volume 92.5 FL (87-102); Mean Platelet Volume 12.6 FL (9.6-12.0); Monocytes % 19.8 % (1.7-12.7); Neutrophils % 29.5 % (38.7-73.9); Platelet Count 141 T/CUMM (130-400); Red Blood Count 4.15 MC/CUMM (3.8-5.5); Red Cell Distribution Width 14.7 % (9.3-17.3); White Blood Count 4.6 T/CUMM (4-12)
[2020-01-15 06:30] LABS: Osmolality,Calculated 283.1 MOS/KG (273-304)
[2020-01-15 06:49] LABS: Eosinophils 7 % (0-10); Lymphocytes 50 % (20-55); Segmented Neutrophils 22 % (50-85); Total Cells Counted 100
[2020-01-15 06:50] LABS: Atypical Lymphocytes Few; Hypochromasia 1+; Microcytosis Slight
[2020-01-15] MEDS: INSULIN REGULAR 100 UNIT/ML SUBCUT SCH (08:23)
[2020-01-15] MEDS ORDERED: metOLazone 2.5 MG TABLET PO SCH (09:00)
[2020-01-15] MEDS: INSULIN LISPRO 100 UNIT/ML SUBCUT SCH (10:00)
[2020-01-15] MEDS: SPIRONOLACTONE 25 MG TABLET PO SCH (10:01)
[2020-01-15] MEDS: METOPROLOL TARTRATE 50 MG TABLET PO SCH (10:01)
[2020-01-15] MEDS: DOCUSATE SODIUM 100 MG CAPSULE PO SCH (10:01)
[2020-01-15] MEDS: POTASSIUM CHLORIDE 20 MEQ TABLET PO SCH (10:02)
[2020-01-15] MEDS: FUROSEMIDE 80 MG TABLET PO SCH (10:02)
[2020-01-15] MEDS: MULTIVITAMIN (CENTRUM) TABLET PO SCH (10:02)
[2020-01-15] MEDS: PANTOPRAZOLE 40 MG TABLET PO SCH (10:02)
[2020-01-15] MEDS: BACLOFEN 10 MG TABLET PO SCH (10:02)
[2020-01-15] MEDS: THEOPHYLLINE ER 300 MG TABLET PO SCH (10:02)
[2020-01-15] MEDS: allopurinoL 100 MG TABLET PO SCH (10:03)
[2020-01-15] MEDS: LINACLOTIDE 145 MCG CAPSULE PO SCH (10:03)
[2020-01-15] MEDS: CARBOXYMETHYLCELLULOSE 1% OPH SOLN BOTH EYES SCH (10:03)
[2020-01-15] MEDS ORDERED: SODIUM CHLORIDE 0.65% NASAL SPRAY 45 ML BOTTLE BOTH NARES PRN (10:04)
[2020-01-15] MEDS: ASPIRIN CHEW 81 MG TABLET PO SCH (10:08)
[2020-01-15] MEDS: ENOXAPARIN 80 MG/0.8 ML SYRINGE SUBCUT SCH (10:14)
[2020-01-15] MEDS: AMIODARONE 200 MG TABLET PO SCH (10:14)
[2020-01-15 12:27] VITALS: BP 138/68
[2020-01-15] MEDS ORDERED: APIXABAN 5 MG TABLET PO SCH (21:00)
[2020-01-16] MEDS ORDERED: AMIODARONE 200 MG TABLET PO SCH (09:00)
== END 2020-01-15 13:50 | disposition home or self-care (01) | DRG 309 ==
LOC: EDUNIT# → EDBD → N.ED 09:38 → N.EDINP 13:02 → N.TELEN 13:43
PROVIDERS: ADMIT Internal Medicine Cardiovascular Disease; ATTEND Internal Medicine Cardiovascular Disease

== ENCOUNTER 2020-06-27 20:51 | Inpatient (IN) ==
[2020-06-27] MEDS ORDERED: SODIUM CHLORIDE 0.9% 1,000 ML IV STA (21:53)
[2020-06-27 22:59] LABS: Albumin 3.7 G/DL (3.4-5.0); Bilirubin,Total 0.9 MG/DL (0.2-1.0); Calcium 10.2 MG/DL (8.5-10.1); Osmolality,Calculated 298.1 MOS/KG (273-304); Total Protein 7.8 G/DL (6.4-8.3)
[2020-06-27 23:05] LABS: Basophils % 0.2 % (0.0-0.8); Eosinophils % 0.1 % (0.00-10.9); Hematocrit 27.2 VOL% (35.7-47.0); Hemoglobin 7.3 GM/DL (12.0-16.0); Immature Granulocytes % 0.5 %; Immature Granulocytes Absolute 0.06 #; Mean Corpuscular HGB Conc 26.8 GM/DL (32-36); Mean Corpuscular Volume 73.3 FL (87-102); Monocytes % 12.5 % (1.7-12.7); NRBC # 0.09 10*3/uL; Neutrophils % 78.7 % (38.7-73.9); Platelet Count 101 T/CUMM (130-400); Red Blood Count 3.71 MC/CUMM (3.8-5.5); Red Cell Distribution Width 19.9 % (9.3-17.3); White Blood Count 12.1 T/CUMM (4-12)
[2020-06-27 23:20] LABS: INR 1.2; PT Patient Result 12.7 SECS (9.8-11.9)
[2020-06-27] MEDS ORDERED: DEXT 5% NACL 0.9% KCL 40 MEQ 40 MEQ/1,000 ML BAG IV SCH (23:30)
[2020-06-28] MEDS ORDERED: ONDANSETRON 4 MG/2 ML VIAL IV PRN (00:08)
[2020-06-28] MEDS ORDERED: ZALEPLON 5 MG CAPSULE PO PRN (00:08)
[2020-06-28] MEDS ORDERED: BISACODYL 5 MG TABLET PO PRN (00:13)
[2020-06-28] MEDS ORDERED: ACETAMINOPHEN 325 MG TABLET PO PRN (00:13)
[2020-06-28] MEDS ORDERED: NITROGLYCERIN SL 0.4 MG TABLET SL PRN (00:13)
[2020-06-28] MEDS ORDERED: MAGNESIUM SULF RIDER 1 GM in PREMIX 1 EACH IV STA (00:16)
[2020-06-28] MEDS ORDERED: DEXTROSE 50% 25 GM/50 ML VIAL IV PRN (00:18)
[2020-06-28] MEDS ORDERED: GLUCAGON 1 MG VIAL IM PRN (00:18)
[2020-06-28] MEDS ORDERED: POTASSIUM CHLORIDE 20 MEQ TABLET PO ONE ×4 (00:48→06:00)
[2020-06-28 03:02] LABS: Lymphocytes 7 % (20-55); Nucleated Red Blood Cells 1 (0-5); Segmented Neutrophils 83 % (50-85); Total Cells Counted 100
[2020-06-28 03:06] LABS: Hypochromasia 2+; Microcytosis 2+; Platelet Estimate Normal
[2020-06-28 03:07] LABS: Polychromasia Slight; Target Cells Few
[2020-06-28 03:08] LABS: Anisocytosis 1+
[2020-06-28] MEDS: POTASSIUM CHLORIDE 20 MEQ TABLET PO SCH ×4 (03:34→21:39)
[2020-06-28 03:57] LABS: Bacteria,Urine Few /HPF (Few); Bilirubin,Urine Negative (Negative); Blood, Urine Small mg/dL (Negative); Glucose,Urine (UA) 50 mg/dL (Negative); Hyaline Casts,Urine 3 /LPF (0-3); Ketones,Urine 5 mg/dL (Negative); Mucus,Urine Occasional /LPF (Occasional); Nitrite,Urine Negative (Negative); Protein,Urine 100 MG/DL; RBC,Urine 2 /HPF (0-4); Urine Appearance Slightly Hazy (Clear); Urine Color Yellow (Yellow); Urine Specific Gravity 1.014 (1.001-1.035); Urine Urobilinogen < 2.0 EU/DL (0.2-1.0); WBC,Urine 2 /HPF (0-6)
[2020-06-28] MEDS: INSULIN REGULAR 100 UNIT/ML SUBCUT SCH ×5 (04:04→21:36)
[2020-06-28] MEDS: SODIUM CHLORIDE 0.9% 1,000 ML IV SCH (06:11)
[2020-06-28 07:38] LABS: Basophils % 0.2 % (0.0-0.8); Hematocrit 25.7 VOL% (35.7-47.0); Immature Granulocytes % 0.5 %; Immature Granulocytes Absolute 0.05 #; Lymphocytes # 1.2 10*3/uL (1.4-4.0); Lymphocytes % 10.5 % (21.3-54.2); Mean Corpuscular HGB Conc 27.2 GM/DL (32-36); Mean Corpuscular Volume 71.8 FL (87-102); Monocytes % 16.1 % (1.7-12.7); NRBC # 0.04 10*3/uL; Neutrophils % 72.7 % (38.7-73.9); Platelet Count 72 T/CUMM (130-400); Red Blood Count 3.58 MC/CUMM (3.8-5.5); Red Cell Distribution Width 19.7 % (9.3-17.3); White Blood Count 11.1 T/CUMM (4-12)
[2020-06-28 07:41] LABS: Lymphocytes 10 % (20-55); Platelet Estimate Decreased; Segmented Neutrophils 77 % (50-85); Total Cells Counted 100
[2020-06-28 07:42] LABS: Hypochromasia 2+; Microcytosis 1+; Ovalocytes Slight
[2020-06-28] MEDS: THEOPHYLLINE ER 300 MG TABLET PO SCH (08:41)
[2020-06-28] MEDS: ASPIRIN CHEW 81 MG TABLET PO SCH (08:41)
[2020-06-28] MEDS: BACLOFEN 10 MG TABLET PO SCH ×2 (08:41→21:38)
[2020-06-28] MEDS: PANTOPRAZOLE 40 MG TABLET PO SCH (08:41)
[2020-06-28] MEDS: MULTIVITAMIN (CENTRUM) TABLET PO SCH (08:41)
[2020-06-28] MEDS: AMIODARONE 200 MG TABLET PO SCH (08:41)
[2020-06-28] MEDS: METOPROLOL TARTRATE 50 MG TABLET PO SCH ×2 (08:41→21:38)
[2020-06-28] MEDS: DOCUSATE SODIUM 100 MG CAPSULE PO SCH (08:41)
[2020-06-28] MEDS: CARBOXYMETHYLCELLULOSE 1% OPH SOLN BOTH EYES SCH ×2 (08:42→21:37)
[2020-06-28] MEDS: SODIUM CHLORIDE 0.65% NASAL SPRAY 45 ML BOTTLE BOTH NARES SCH ×2 (08:42→21:37)
[2020-06-28 11:50] LABS: Calcium 9.4 MG/DL (8.5-10.1); Osmolality,Calculated 293.3 MOS/KG (273-304)
[2020-06-28] MEDS ORDERED: INSULIN GLARGINE 100 UNIT/ML SUBCUT SCH (21:00)
[2020-06-28] MEDS: INSULIN GLARGINE 100 UNIT/ML SUBCUT SCH (21:36)
[2020-06-28] MEDS: TRAVOPROST 0.004% OPH SOLN 2.5 ML BOTTLE BOTH EYES SCH (21:37)
[2020-06-28] MEDS: MONTELUKAST 10 MG TABLET PO SCH (21:38)
[2020-06-28] MEDS: ROSUVASTATIN 20 MG TABLET PO SCH (21:38)
[2020-06-29 04:51] LABS: Basophils % 0.1 % (0.0-0.8); Eosinophils % 0.4 % (0.00-10.9); Hemoglobin 9.9 GM/DL (12.0-16.0); Immature Granulocytes % 0.1 %; Immature Granulocytes Absolute 0.01 #; Lymphocytes # 1.5 10*3/uL (1.4-4.0); Lymphocytes % 18.7 % (21.3-54.2); Mean Corpuscular HGB Conc 28.9 GM/DL (32-36); Mean Corpuscular Volume 75.8 FL (87-102); Monocytes % 17.9 % (1.7-12.7); NRBC # 0.02 10*3/uL; Neutrophils % 62.8 % (38.7-73.9); Platelet Count 53 T/CUMM (130-400); Red Blood Count 4.51 MC/CUMM (3.8-5.5); Red Cell Distribution Width 20.6 % (9.3-17.3)
[2020-06-29 05:21] LABS: Calcium 9.5 MG/DL (8.5-10.1); Osmolality,Calculated 284.5 MOS/KG (273-304)
[2020-06-29 05:23] LABS: Hematocrit 33.5 VOL% (35.7-47.0)
[2020-06-29 05:31] LABS: Band Neutrophils 3 % (0-10); Lymphocytes 29 % (20-55); Nucleated Red Blood Cells 2 (0-5); Segmented Neutrophils 58 % (50-85); Total Cells Counted 100
[2020-06-29 05:32] LABS: Anisocytosis 1+; Hypochromasia 1+; Platelet Estimate Decreased; Target Cells Few
[2020-06-29] MEDS: INSULIN REGULAR 100 UNIT/ML SUBCUT SCH ×4 (08:31→20:43)
[2020-06-29] MEDS: CARBOXYMETHYLCELLULOSE 1% OPH SOLN BOTH EYES SCH ×2 (08:32→20:48)
[2020-06-29] MEDS: SODIUM CHLORIDE 0.65% NASAL SPRAY 45 ML BOTTLE BOTH NARES SCH ×2 (08:32→20:45)
[2020-06-29] MEDS: AMIODARONE 200 MG TABLET PO SCH (08:33)
[2020-06-29] MEDS: METOPROLOL TARTRATE 50 MG TABLET PO SCH ×2 (08:33→21:02)
[2020-06-29] MEDS: PANTOPRAZOLE 40 MG TABLET PO SCH (08:33)
[2020-06-29] MEDS: MULTIVITAMIN (CENTRUM) TABLET PO SCH (08:33)
[2020-06-29] MEDS: DOCUSATE SODIUM 100 MG CAPSULE PO SCH (08:33)
[2020-06-29] MEDS: POTASSIUM CHLORIDE 20 MEQ TABLET PO SCH ×6 (08:33→21:01)
[2020-06-29] MEDS: ASPIRIN CHEW 81 MG TABLET PO SCH (08:33)
[2020-06-29] MEDS: BACLOFEN 10 MG TABLET PO SCH ×2 (08:33→21:00)
[2020-06-29] MEDS ORDERED: POTASSIUM CHLORIDE RIDER 10 MEQ in PREMIX 1 EACH IV PRN (09:51)
[2020-06-29] MEDS ORDERED: POTASSIUM CHLORIDE INJ 50 MEQ in SODIUM CHLORIDE 0.9% 500 ML IV ONE (10:00)
[2020-06-29] MEDS: SODIUM CHLORIDE 0.9% 1,000 ML IV SCH (10:22)
[2020-06-29] MEDS: INSULIN GLARGINE 100 UNIT/ML SUBCUT SCH (20:44)
[2020-06-29] MEDS: TRAVOPROST 0.004% OPH SOLN 2.5 ML BOTTLE BOTH EYES SCH (20:47)
[2020-06-29] MEDS: ROSUVASTATIN 20 MG TABLET PO SCH (20:59)
[2020-06-29] MEDS: MONTELUKAST 10 MG TABLET PO SCH (21:00)
[2020-06-30 03:33] LABS: Basophils % 0.3 % (0.0-0.8); Eosinophils % 0.4 % (0.00-10.9); Hematocrit 32.9 VOL% (35.7-47.0); Hemoglobin 9.7 GM/DL (12.0-16.0); Immature Granulocytes % 0.4 %; Immature Granulocytes Absolute 0.03 #; Lymphocytes # 1.1 10*3/uL (1.4-4.0); Lymphocytes % 14.6 % (21.3-54.2); Mean Corpuscular HGB Conc 29.5 GM/DL (32-36); Mean Corpuscular Volume 77.8 FL (87-102); Monocytes % 14.9 % (1.7-12.7); Neutrophils % 69.4 % (38.7-73.9); Platelet Count 53 T/CUMM (130-400); Red Blood Count 4.23 MC/CUMM (3.8-5.5); Red Cell Distribution Width 20.1 % (9.3-17.3); White Blood Count 7.5 T/CUMM (4-12)
[2020-06-30 03:53] LABS: Osmolality,Calculated 295.6 MOS/KG (273-304)
[2020-06-30 04:29] LABS: Hypochromasia Slight; Microcytosis Slight; Platelet Estimate Decreased
[2020-06-30] MEDS ORDERED: SODIUM PHOSPHATE ENEMA 133 ML BOTTLE RECTAL ONE (06:00)
[2020-06-30] MEDS: SODIUM CHLORIDE 0.9% 1,000 ML IV SCH ×2 (07:40→17:38)
[2020-06-30] MEDS: INSULIN REGULAR 100 UNIT/ML SUBCUT SCH ×4 (07:40→20:17)
[2020-06-30] MEDS ORDERED: ETOMIDATE 20 MG/10 ML VIAL IV ONE (09:00)
[2020-06-30] MEDS ORDERED: LIDOCAINE 2% 5 ML VIAL ONE (09:00)
[2020-06-30] MEDS: METOPROLOL TARTRATE 50 MG TABLET PO SCH ×3 (09:52→21:16)
[2020-06-30] MEDS: BACLOFEN 10 MG TABLET PO SCH ×3 (09:52→21:16)
[2020-06-30] MEDS: POTASSIUM CHLORIDE 20 MEQ TABLET PO SCH ×4 (09:52→21:17)
[2020-06-30] MEDS: ASPIRIN CHEW 81 MG TABLET PO SCH ×2 (09:52→12:08)
[2020-06-30] MEDS: AMIODARONE 200 MG TABLET PO SCH ×2 (09:52→12:09)
[2020-06-30] MEDS: DOCUSATE SODIUM 100 MG CAPSULE PO SCH ×2 (09:52→12:09)
[2020-06-30] MEDS: MULTIVITAMIN (CENTRUM) TABLET PO SCH ×2 (09:52→12:09)
[2020-06-30] MEDS: CARBOXYMETHYLCELLULOSE 1% OPH SOLN BOTH EYES SCH ×2 (09:53→21:16)
[2020-06-30] MEDS: PANTOPRAZOLE 40 MG TABLET PO SCH ×2 (09:53→12:10)
[2020-06-30] MEDS: SODIUM CHLORIDE 0.65% NASAL SPRAY 45 ML BOTTLE BOTH NARES SCH ×2 (09:53→21:18)
[2020-06-30] MEDS: THEOPHYLLINE ER 300 MG TABLET PO SCH ×2 (09:53→12:09)
[2020-06-30] MEDS ORDERED: LACTATED RINGERS 1,000 ML IV SCH (10:00)
[2020-06-30 18:00] LABS: ABG Base Excess -4.1 MMOL/L (-2.5-2.5); ABG PCO2 43.6 MM HG (35-48); ABG PH 7.312 (7.35-7.45); ABG PO2 82.2 MM HG (80-95); ABG TCO2 20.2 MMOL/L (23-27); Allen Test Positive; Pt O2 Delivery Device Room Air
[2020-06-30] MEDS: POLYETHYLENE GLYCOL POWDER 17 GM PACK PO SCH (21:16)
[2020-06-30] MEDS: MONTELUKAST 10 MG TABLET PO SCH (21:16)
[2020-06-30] MEDS: INSULIN GLARGINE 100 UNIT/ML SUBCUT SCH (21:16)
[2020-06-30] MEDS: ROSUVASTATIN 20 MG TABLET PO SCH (21:18)
[2020-06-30] MEDS: TRAVOPROST 0.004% OPH SOLN 2.5 ML BOTTLE BOTH EYES SCH (21:18)
[2020-07-01] MEDS: SODIUM CHLORIDE 0.9% 1,000 ML IV SCH ×2 (04:51→21:07)
[2020-07-01 05:47] LABS: Basophils % 0.3 % (0.0-0.8); Eosinophils % 0.6 % (0.00-10.9); Hematocrit 35.1 VOL% (35.7-47.0); Immature Granulocytes % 0.6 %; Immature Granulocytes Absolute 0.04 #; Lymphocytes # 1.2 10*3/uL (1.4-4.0); Lymphocytes % 17.4 % (21.3-54.2); Mean Corpuscular HGB Conc 29.1 GM/DL (32-36); Mean Corpuscular Volume 77.3 FL (87-102); Monocytes % 17.3 % (1.7-12.7); Neutrophils % 63.8 % (38.7-73.9); Red Blood Count 4.54 MC/CUMM (3.8-5.5); Red Cell Distribution Width 20.5 % (9.3-17.3); White Blood Count 6.7 T/CUMM (4-12)
[2020-07-01 05:51] LABS: Hemoglobin 10.2 GM/DL (12.0-16.0); Platelet Count 49 T/CUMM (130-400)
[2020-07-01 05:53] LABS: Lymphocytes 14 % (20-55); Segmented Neutrophils 69 % (50-85); Total Cells Counted 100
[2020-07-01 05:54] LABS: Hypochromasia 1+; Microcytosis Slight; Platelet Estimate Decreased
[2020-07-01 06:13] LABS: Calcium 9.7 MG/DL (8.5-10.1)
[2020-07-01] MEDS ORDERED: DEXTROSE 50% 25 GM/50 ML VIAL IV PRN (08:46)
[2020-07-01] MEDS ORDERED: GLUCAGON 1 MG VIAL IM PRN (08:46)
[2020-07-01] MEDS: BACLOFEN 10 MG TABLET PO SCH ×2 (08:57→20:52)
[2020-07-01] MEDS: PANTOPRAZOLE 40 MG TABLET PO SCH (08:57)
[2020-07-01] MEDS: CARBOXYMETHYLCELLULOSE 1% OPH SOLN BOTH EYES SCH ×2 (08:57→20:53)
[2020-07-01] MEDS: ASPIRIN CHEW 81 MG TABLET PO SCH (08:57)
[2020-07-01] MEDS: METOPROLOL TARTRATE 50 MG TABLET PO SCH ×2 (08:57→20:53)
[2020-07-01] MEDS: MULTIVITAMIN (CENTRUM) TABLET PO SCH (08:57)
[2020-07-01] MEDS: POTASSIUM CHLORIDE 20 MEQ TABLET PO SCH ×3 (08:57→20:52)
[2020-07-01] MEDS: AMIODARONE 200 MG TABLET PO SCH (08:57)
[2020-07-01] MEDS: INSULIN REGULAR 100 UNIT/ML SUBCUT SCH ×4 (08:58→20:27)
[2020-07-01] MEDS: DOCUSATE SODIUM 100 MG CAPSULE PO SCH (08:58)
[2020-07-01] MEDS: POLYETHYLENE GLYCOL POWDER 17 GM PACK PO SCH ×2 (08:58→20:52)
[2020-07-01] MEDS: SODIUM CHLORIDE 0.65% NASAL SPRAY 45 ML BOTTLE BOTH NARES SCH ×2 (08:59→20:53)
[2020-07-01] MEDS: ONDANSETRON ODT 4 MG TABLET PO SCH ×2 (15:58→21:07)
[2020-07-01] MEDS: INSULIN GLARGINE 100 UNIT/ML SUBCUT SCH (20:28)
[2020-07-01] MEDS: ROSUVASTATIN 20 MG TABLET PO SCH (20:52)
[2020-07-01] MEDS: TRAVOPROST 0.004% OPH SOLN 2.5 ML BOTTLE BOTH EYES SCH (20:53)
[2020-07-01] MEDS: MONTELUKAST 10 MG TABLET PO SCH (20:53)
[2020-07-02] MEDS: ONDANSETRON ODT 4 MG TABLET PO SCH ×3 (06:06→20:38)
[2020-07-02 06:21] LABS: Calcium 9.6 MG/DL (8.5-10.1); Osmolality,Calculated 286.8 MOS/KG (273-304)
[2020-07-02 06:49] LABS: Basophils % 0.3 % (0.0-0.8); Eosinophils # 0.1 10*3/uL (0.0-0.87); Eosinophils % 1.9 % (0.00-10.9); Hematocrit 31.9 VOL% (35.7-47.0); Hemoglobin 9.3 GM/DL (12.0-16.0); Immature Granulocytes % 0.5 %; Immature Granulocytes Absolute 0.03 #; Lymphocytes # 1.3 10*3/uL (1.4-4.0); Lymphocytes % 21.2 % (21.3-54.2); Mean Corpuscular HGB Conc 29.2 GM/DL (32-36); Mean Corpuscular Volume 78.4 FL (87-102); Monocytes % 20.4 % (1.7-12.7); Neutrophils % 55.7 % (38.7-73.9); Platelet Count 42 T/CUMM (130-400); Red Blood Count 4.07 MC/CUMM (3.8-5.5); Red Cell Distribution Width 21.1 % (9.3-17.3); White Blood Count 6.2 T/CUMM (4-12)
[2020-07-02 07:08] LABS: Hypochromasia 1+; Lymphocytes 21 % (20-55); Microcytosis Slight; Platelet Estimate Decreased; Segmented Neutrophils 61 % (50-85); Total Cells Counted 100
[2020-07-02] MEDS: AMIODARONE 200 MG TABLET PO SCH (08:39)
[2020-07-02] MEDS: MULTIVITAMIN (CENTRUM) TABLET PO SCH (08:39)
[2020-07-02] MEDS: PANTOPRAZOLE 40 MG TABLET PO SCH (08:39)
[2020-07-02] MEDS: ASPIRIN CHEW 81 MG TABLET PO SCH (08:39)
[2020-07-02] MEDS: POTASSIUM CHLORIDE 20 MEQ TABLET PO SCH ×3 (08:39→20:36)
[2020-07-02] MEDS: METOPROLOL TARTRATE 50 MG TABLET PO SCH ×2 (08:39→20:36)
[2020-07-02] MEDS: CARBOXYMETHYLCELLULOSE 1% OPH SOLN BOTH EYES SCH ×2 (08:40→20:35)
[2020-07-02] MEDS: THEOPHYLLINE ER 300 MG TABLET PO SCH (08:40)
[2020-07-02] MEDS: POLYETHYLENE GLYCOL POWDER 17 GM PACK PO SCH ×2 (08:41→20:37)
[2020-07-02] MEDS: SODIUM CHLORIDE 0.65% NASAL SPRAY 45 ML BOTTLE BOTH NARES SCH ×2 (08:41→20:37)
[2020-07-02] MEDS: INSULIN REGULAR 100 UNIT/ML SUBCUT SCH ×4 (08:45→20:36)
[2020-07-02] MEDS: DOCUSATE SODIUM 100 MG CAPSULE PO SCH (08:45)
[2020-07-02] MEDS: BACLOFEN 10 MG TABLET PO SCH (11:00)
[2020-07-02] MEDS: SODIUM CHLORIDE 0.9% 1,000 ML IV SCH (17:08)
[2020-07-02] MEDS: INSULIN GLARGINE 100 UNIT/ML SUBCUT SCH (20:36)
[2020-07-02] MEDS: MONTELUKAST 10 MG TABLET PO SCH (20:36)
[2020-07-02] MEDS: ROSUVASTATIN 20 MG TABLET PO SCH (20:36)
[2020-07-02] MEDS: TRAVOPROST 0.004% OPH SOLN 2.5 ML BOTTLE BOTH EYES SCH (20:37)
[2020-07-03] MEDS: ONDANSETRON ODT 4 MG TABLET PO SCH ×2 (03:46→06:04)
[2020-07-03 06:23] LABS: Albumin 2.7 G/DL (3.4-5.0); Bilirubin,Total 0.5 MG/DL (0.2-1.0); Calcium 10.3 MG/DL (8.5-10.1); Total Protein 6.5 G/DL (6.4-8.3)
[2020-07-03 06:39] LABS: Basophils % 0.2 % (0.0-0.8); Eosinophils # 0.1 10*3/uL (0.0-0.87); Eosinophils % 1.3 % (0.00-10.9); Hematocrit 34.7 VOL% (35.7-47.0); Hemoglobin 10.3 GM/DL (12.0-16.0); Immature Granulocytes % 0.5 %; Immature Granulocytes Absolute 0.04 #; Lymphocytes # 1.5 10*3/uL (1.4-4.0); Lymphocytes % 17.2 % (21.3-54.2); Mean Corpuscular HGB Conc 29.7 GM/DL (32-36); Mean Corpuscular Volume 76.1 FL (87-102); Monocytes % 16.2 % (1.7-12.7); NRBC # 0.02 10*3/uL; Neutrophils % 64.6 % (38.7-73.9); Red Blood Count 4.56 MC/CUMM (3.8-5.5); Red Cell Distribution Width 21.6 % (9.3-17.3); White Blood Count 8.8 T/CUMM (4-12)
[2020-07-03 06:40] LABS: Platelet Count 42 T/CUMM (130-400)
[2020-07-03 07:10] LABS: Atypical Lymphocytes Few; Band Neutrophils 2 % (0-10); Eosinophils 2 % (0-10); Hypochromasia 1+; Lymphocytes 21 % (20-55); Microcytosis 1+; Segmented Neutrophils 68 % (50-85); Total Cells Counted 100
[2020-07-03 07:11] LABS: Anisocytosis 1+; Platelet Estimate Decreased; Polychromasia Slight
[2020-07-03] MEDS: AMIODARONE 200 MG TABLET PO SCH (09:34)
[2020-07-03] MEDS: METOPROLOL TARTRATE 50 MG TABLET PO SCH (09:34)
[2020-07-03] MEDS: DOCUSATE SODIUM 100 MG CAPSULE PO SCH (09:34)
[2020-07-03] MEDS: INSULIN REGULAR 100 UNIT/ML SUBCUT SCH (09:34)
[2020-07-03] MEDS: POTASSIUM CHLORIDE 20 MEQ TABLET PO SCH (09:34)
[2020-07-03] MEDS: PANTOPRAZOLE 40 MG TABLET PO SCH (09:34)
[2020-07-03] MEDS: ASPIRIN CHEW 81 MG TABLET PO SCH (09:35)
[2020-07-03] MEDS: SODIUM CHLORIDE 0.65% NASAL SPRAY 45 ML BOTTLE BOTH NARES SCH (09:35)
[2020-07-03] MEDS: POLYETHYLENE GLYCOL POWDER 17 GM PACK PO SCH (09:35)
[2020-07-03] MEDS: MULTIVITAMIN (CENTRUM) TABLET PO SCH (09:35)
[2020-07-03] MEDS: CARBOXYMETHYLCELLULOSE 1% OPH SOLN BOTH EYES SCH (09:38)
[2020-07-03 11:54] VITALS: BP 130/60
== END 2020-07-03 12:03 | disposition home or self-care (01) | DRG 813 ==
LOC: EDUNIT# → N.ED 20:51 → N.EDINP 06-28 00:08 → SUATTDRO 06-28 00:08 → N.ICU 06-28 05:27 → N.4E 06-30 14:42
PROVIDERS: ADMIT Internal Medicine; ATTEND Emergency Medicine

== ENCOUNTER 2020-07-05 17:40 | Inpatient (IN) ==
[2020-07-05] MEDS ORDERED: ONDANSETRON 4 MG/2 ML VIAL IV STA (18:25)
[2020-07-05] MEDS ORDERED: SODIUM CHLORIDE 0.9% 500 ML IV STA (18:25)
[2020-07-05 20:02] LABS: Basophils % 0.1 % (0.0-0.8); Eosinophils # 0.1 10*3/uL (0.0-0.87); Eosinophils % 0.5 % (0.00-10.9); Hematocrit 37.6 VOL% (35.7-47.0); Immature Granulocytes % 0.9 %; Immature Granulocytes Absolute 0.19 #; Lymphocytes # 0.8 10*3/uL (1.4-4.0); Mean Corpuscular HGB Conc 29.3 GM/DL (32-36); Mean Corpuscular Volume 79.5 FL (87-102); Monocytes % 12.6 % (1.7-12.7); Neutrophils % 81.9 % (38.7-73.9); Platelet Count 40 T/CUMM (130-400); Red Blood Count 4.73 MC/CUMM (3.8-5.5); Red Cell Distribution Width 24.2 % (9.3-17.3)
[2020-07-05 20:22] LABS: Alanine Aminotransferase 17 U/L (13-56); Albumin 2.5 G/DL (3.4-5.0); Alkaline Phosphatase 127 U/L (45-117); Amylase 41 U/L (25-115); Aspartate Amino Transferase 38 U/L (0-37); Blood Urea Nitrogen 30 MG/DL (7-18); Calcium 10.4 MG/DL (8.5-10.1); Estimated Glom Filtration Rate 17 ML/MIN; Glucose 177 MG/DL (74-106); Osmolality,Calculated 299.6 MOS/KG (273-304); Total Protein 7.1 G/DL (6.4-8.3)
[2020-07-05 20:38] LABS: Bilirubin,Urine Negative (Negative); Blood, Urine Large mg/dL (Negative); Glucose,Urine (UA) Negative (Negative); Ketones,Urine Negative (Negative); Nitrite,Urine Negative (Negative); Protein,Urine 100 MG/DL; RBC,Urine 1060 /HPF (0-4); Urine Appearance CLOUDY (Clear); Urine Color Amber (Yellow); Urine Urobilinogen < 2.0 EU/DL (0.2-1.0); WBC,Urine 262 /HPF (0-6)
[2020-07-05] MEDS ORDERED: PIPERACILLIN/TAZOBACTAM 3,375 MG in SODIUM CHLORIDE 0.9% 100 ML IV STA (20:41)
[2020-07-05] MEDS ORDERED: PIPERACILLIN/TAZOBACTAM 3,375 MG VIAL IV ONE (20:54)
[2020-07-05 21:29] LABS: Band Neutrophils 2 % (0-10); Hypochromasia Slight; Lymphocytes 7 % (20-55); Microcytosis 1+; Platelet Estimate Decreased; Segmented Neutrophils 84 % (50-85); Total Cells Counted 100
[2020-07-05] MEDS ORDERED: ONDANSETRON 4 MG/2 ML VIAL IV PRN (22:20)
[2020-07-05] MEDS ORDERED: DEXTROSE 50% 25 GM/50 ML VIAL IV PRN (22:20)
[2020-07-05] MEDS ORDERED: GLUCAGON 1 MG VIAL IM PRN (22:20)
[2020-07-05] MEDS ORDERED: DEXTROSE 50% 25 GM/50 ML SYRINGE IV PRN (22:40)
[2020-07-06] MEDS: SODIUM CHLORIDE 0.9% 1,000 ML IV SCH ×4 (02:15→23:33)
[2020-07-06] MEDS: ACETAMINOPHEN 325 MG TABLET PO PRN (03:30)
[2020-07-06] MEDS: INSULIN REGULAR 100 UNIT/ML SUBCUT SCH ×5 (04:04→20:31)
[2020-07-06] MEDS: PIPERACILLIN/TAZOBACTAM 3,375 MG in SODIUM CHLORIDE 0.9% 100 ML IV SCH ×3 (06:00→21:30)
[2020-07-06 06:22] LABS: Basophils # 0.1 10*3/uL (0.0-0.2); Basophils % 0.2 % (0.0-0.8); Bilirubin,Total 0.6 MG/DL (0.2-1.0); Calcium 9.7 MG/DL (8.5-10.1); Hematocrit 31.7 VOL% (35.7-47.0); Immature Granulocytes % 0.9 %; Immature Granulocytes Absolute 0.23 #; Lymphocytes # 0.7 10*3/uL (1.4-4.0); Lymphocytes % 2.7 % (21.3-54.2); Mean Corpuscular HGB Conc 29.3 GM/DL (32-36); Mean Corpuscular Volume 77.7 FL (87-102); Monocytes % 12.4 % (1.7-12.7); Neutrophils % 83.8 % (38.7-73.9); Osmolality,Calculated 303.7 MOS/KG (273-304); Red Blood Count 4.08 MC/CUMM (3.8-5.5); Red Cell Distribution Width 24.4 % (9.3-17.3); Total Protein 5.9 G/DL (6.4-8.3); White Blood Count 26.9 T/CUMM (4-12)
[2020-07-06 06:24] LABS: Platelet Count 32 T/CUMM (130-400)
[2020-07-06 06:25] LABS: Hemoglobin 9.3 GM/DL (12.0-16.0)
[2020-07-06 06:28] LABS: Band Neutrophils 6 % (0-10); Lymphocytes 4 % (20-55); Platelet Estimate Decreased; Segmented Neutrophils 84 % (50-85); Total Cells Counted 100
[2020-07-06 06:29] LABS: Hypochromasia 1+; Microcytosis 1+
[2020-07-06] MEDS: CLINDAMYCIN INJ 600 MG in PREMIX 1 EACH IV SCH ×2 (10:05→20:31)
[2020-07-07] MEDS: CLINDAMYCIN INJ 600 MG in PREMIX 1 EACH IV SCH ×2 (04:25→11:36)
[2020-07-07] MEDS: SODIUM CHLORIDE 0.9% 1,000 ML IV SCH ×3 (05:44→23:17)
[2020-07-07] MEDS: PIPERACILLIN/TAZOBACTAM 3,375 MG in SODIUM CHLORIDE 0.9% 100 ML IV SCH ×2 (05:44→14:19)
[2020-07-07 05:47] LABS: Basophils % 0.1 % (0.0-0.8); Hematocrit 28.5 VOL% (35.7-47.0); Hemoglobin 8.3 GM/DL (12.0-16.0); Immature Granulocytes % 0.5 %; Immature Granulocytes Absolute 0.12 #; Lymphocytes # 0.9 10*3/uL (1.4-4.0); Lymphocytes % 3.9 % (21.3-54.2); Mean Corpuscular HGB Conc 29.1 GM/DL (32-36); Mean Corpuscular Volume 77.4 FL (87-102); Monocytes % 10.9 % (1.7-12.7); Neutrophils % 84.6 % (38.7-73.9); Red Blood Count 3.68 MC/CUMM (3.8-5.5); Red Cell Distribution Width 24.4 % (9.3-17.3); White Blood Count 21.9 T/CUMM (4-12)
[2020-07-07 05:56] LABS: Platelet Count 27 T/CUMM (130-400)
[2020-07-07 06:08] LABS: Ferritin 141.4 ng/ml (8-252)
[2020-07-07 06:09] LABS: Band Neutrophils 1 % (0-10); Lymphocytes 4 % (20-55); Platelet Estimate Decreased; Segmented Neutrophils 87 % (50-85); Total Cells Counted 100
[2020-07-07 06:10] LABS: Hypochromasia 1+; Microcytosis 1+; Ovalocytes Slight
[2020-07-07 06:15] LABS: Calcium 9.1 MG/DL (8.5-10.1); Osmolality,Calculated 302.8 MOS/KG (273-304)
[2020-07-07] MEDS: INSULIN REGULAR 100 UNIT/ML SUBCUT SCH ×4 (09:01→21:29)
[2020-07-07] MEDS: ALBUMIN 25% 12.5 GM in PREMIX 1 EACH IV SCH ×2 (13:02→23:17)
[2020-07-07] MEDS: cefTRIAXone 2,000 MG in SYRINGE 1 EACH IV SCH (17:25)
[2020-07-07] MEDS: SKIN HEALING OINT (AQUAPHOR) 50 GM TUBE TOP PRN (19:26)
[2020-07-08] MEDS: SODIUM CHLORIDE 0.9% 1,000 ML IV SCH ×3 (03:59→20:29)
[2020-07-08 06:08] LABS: Basophils # 0.1 10*3/uL (0.0-0.2); Basophils % 0.2 % (0.0-0.8); Eosinophils # 0.1 10*3/uL (0.0-0.87); Eosinophils % 0.4 % (0.00-10.9); Hematocrit 30.4 VOL% (35.7-47.0); Hemoglobin 8.8 GM/DL (12.0-16.0); Immature Granulocytes % 1.1 %; Immature Granulocytes Absolute 0.24 #; Lymphocytes # 0.8 10*3/uL (1.4-4.0); Lymphocytes % 3.7 % (21.3-54.2); Mean Corpuscular HGB Conc 28.9 GM/DL (32-36); Mean Corpuscular Volume 78.1 FL (87-102); Monocytes % 6.6 % (1.7-12.7); Red Blood Count 3.89 MC/CUMM (3.8-5.5); Red Cell Distribution Width 25.2 % (9.3-17.3); White Blood Count 22.7 T/CUMM (4-12)
[2020-07-08 06:27] LABS: Platelet Count 25 T/CUMM (130-400)
[2020-07-08 06:29] LABS: Calcium 9.3 MG/DL (8.5-10.1)
[2020-07-08 06:31] LABS: Lymphocytes 2 % (20-55); Segmented Neutrophils 93 % (50-85); Total Cells Counted 100
[2020-07-08 06:32] LABS: Hypochromasia 1+; Microcytosis 1+; Ovalocytes Slight; Platelet Estimate Decreased
[2020-07-08] MEDS: INSULIN REGULAR 100 UNIT/ML SUBCUT SCH ×4 (09:00→20:28)
[2020-07-08] MEDS: ALBUMIN 25% 12.5 GM in PREMIX 1 EACH IV SCH (12:34)
[2020-07-08] MEDS: cefTRIAXone 2,000 MG in SYRINGE 1 EACH IV SCH (17:19)
[2020-07-08] MEDS: ACETAMINOPHEN 325 MG TABLET PO PRN (17:29)
[2020-07-09] MEDS: ALBUMIN 25% 12.5 GM in PREMIX 1 EACH IV SCH (00:14)
[2020-07-09] MEDS: ACETAMINOPHEN 325 MG TABLET PO PRN ×2 (00:14→17:15)
[2020-07-09] MEDS: SKIN HEALING OINT (AQUAPHOR) 50 GM TUBE TOP PRN (05:41)
[2020-07-09] MEDS: SODIUM CHLORIDE 0.9% 1,000 ML IV SCH ×4 (05:44→23:54)
[2020-07-09 06:23] LABS: Basophils % 0.2 % (0.0-0.8); Eosinophils # 0.2 10*3/uL (0.0-0.87); Eosinophils % 1.5 % (0.00-10.9); Hematocrit 27.8 VOL% (35.7-47.0); Immature Granulocytes % 1.5 %; Immature Granulocytes Absolute 0.24 #; Lymphocytes # 0.7 10*3/uL (1.4-4.0); Lymphocytes % 4.3 % (21.3-54.2); Mean Corpuscular HGB Conc 28.8 GM/DL (32-36); Mean Corpuscular Volume 78.3 FL (87-102); Monocytes % 10.2 % (1.7-12.7); Neutrophils % 82.3 % (38.7-73.9); Red Blood Count 3.55 MC/CUMM (3.8-5.5); Red Cell Distribution Width 25.1 % (9.3-17.3); White Blood Count 15.5 T/CUMM (4-12)
[2020-07-09 06:26] LABS: Platelet Count 26 T/CUMM (130-400)
[2020-07-09 06:43] LABS: Calcium 9.2 MG/DL (8.5-10.1)
[2020-07-09 06:47] LABS: Anisocytosis 2+; Band Neutrophils 6 % (0-10); Eosinophils 1 % (0-10); Lymphocytes 11 % (20-55); Platelet Estimate Decreased; Segmented Neutrophils 71 % (50-85); Total Cells Counted 100
[2020-07-09 06:48] LABS: Burr Cells Few; Hypochromasia Slight; Poikilocytosis Slight; Polychromasia Slight; Target Cells Few
[2020-07-09] MEDS: INSULIN REGULAR 100 UNIT/ML SUBCUT SCH ×4 (07:34→20:06)
[2020-07-09] MEDS: cefTRIAXone 2,000 MG in SYRINGE 1 EACH IV SCH (17:00)
[2020-07-09] MEDS ORDERED: AMIODARONE 200 MG TABLET PO STA (19:44)
[2020-07-09] MEDS: METOPROLOL TARTRATE 50 MG TABLET PO SCH (20:06)
[2020-07-10] MEDS: ACETAMINOPHEN 325 MG TABLET PO PRN (02:41)
[2020-07-10 06:27] LABS: Calcium 9.2 MG/DL (8.5-10.1); Osmolality,Calculated 299.3 MOS/KG (273-304)
[2020-07-10 06:29] LABS: Basophils % 0.3 % (0.0-0.8); Eosinophils # 0.2 10*3/uL (0.0-0.87); Eosinophils % 1.7 % (0.00-10.9); Hematocrit 28.9 VOL% (35.7-47.0); Hemoglobin 8.5 GM/DL (12.0-16.0); Immature Granulocytes % 1.7 %; Lymphocytes # 0.7 10*3/uL (1.4-4.0); Lymphocytes % 5.5 % (21.3-54.2); Mean Corpuscular HGB Conc 29.4 GM/DL (32-36); Mean Corpuscular Volume 77.7 FL (87-102); Monocytes % 15.2 % (1.7-12.7); Neutrophils % 75.6 % (38.7-73.9); Red Blood Count 3.72 MC/CUMM (3.8-5.5); Red Cell Distribution Width 25.8 % (9.3-17.3); White Blood Count 11.9 T/CUMM (4-12)
[2020-07-10 07:18] LABS: Platelet Count 31 T/CUMM (130-400)
[2020-07-10] MEDS: METOPROLOL TARTRATE 50 MG TABLET PO SCH ×2 (09:50→21:52)
[2020-07-10] MEDS: INSULIN REGULAR 100 UNIT/ML SUBCUT SCH ×4 (09:50→20:28)
[2020-07-10] MEDS: AMIODARONE 200 MG TABLET PO SCH (09:51)
[2020-07-10 10:17] LABS: Anisocytosis 3+; Atypical Lymphocytes Few; Burr Cells Few; Hypochromasia 4+; Macrocytosis 1+; Microcytosis 1+; Ovalocytes Few; Platelet Estimate Decreased; Schistocytes Slight; Target Cells Few
[2020-07-10] MEDS: SODIUM CHLORIDE 0.9% 1,000 ML IV SCH (13:20)
[2020-07-10] MEDS: SKIN HEALING OINT (AQUAPHOR) 50 GM TUBE TOP PRN (14:30)
[2020-07-10] MEDS: cefTRIAXone 2,000 MG in SYRINGE 1 EACH IV SCH (17:16)
[2020-07-10] MEDS: ALBUTEROL/IPRATROPIUM 3 ML NEB RESP TX SCH (19:20)
[2020-07-10] MEDS ORDERED: APIXABAN 5 MG TABLET PO SCH (21:00)
[2020-07-10] MEDS: methylPREDNISolone SOD SUC 40 MG/1 ML VIAL IV SCH (21:52)
[2020-07-10] MEDS: MONTELUKAST 10 MG TABLET PO SCH (21:52)
[2020-07-11] MEDS: ALBUTEROL/IPRATROPIUM 3 ML NEB RESP TX SCH ×4 (01:03→19:41)
[2020-07-11 06:41] LABS: Basophils % 0.3 % (0.0-0.8); Eosinophils % 0.1 % (0.00-10.9); Hematocrit 32.2 VOL% (35.7-47.0); Hemoglobin 9.2 GM/DL (12.0-16.0); Immature Granulocytes % 3.3 %; Immature Granulocytes Absolute 0.35 #; Lymphocytes # 0.4 10*3/uL (1.4-4.0); Lymphocytes % 3.3 % (21.3-54.2); Mean Corpuscular HGB Conc 28.6 GM/DL (32-36); Mean Corpuscular Volume 80.1 FL (87-102); Monocytes % 3.2 % (1.7-12.7); Neutrophils % 89.8 % (38.7-73.9); Platelet Count 39 T/CUMM (130-400); Red Blood Count 4.02 MC/CUMM (3.8-5.5); Red Cell Distribution Width 26.4 % (9.3-17.3); White Blood Count 10.7 T/CUMM (4-12)
[2020-07-11 06:45] LABS: Calcium 9.5 MG/DL (8.5-10.1); Osmolality,Calculated 305.7 MOS/KG (273-304)
[2020-07-11] MEDS: INSULIN REGULAR 100 UNIT/ML SUBCUT SCH ×4 (07:50→21:08)
[2020-07-11] MEDS: methylPREDNISolone SOD SUC 40 MG/1 ML VIAL IV SCH ×2 (09:50→21:07)
[2020-07-11] MEDS: METOPROLOL TARTRATE 50 MG TABLET PO SCH (09:51)
[2020-07-11] MEDS: AMIODARONE 200 MG TABLET PO SCH (09:51)
[2020-07-11] MEDS: ASPIRIN CHEW 81 MG TABLET PO SCH (09:51)
[2020-07-11] MEDS: allopurinoL 100 MG TABLET PO SCH (09:51)
[2020-07-11] MEDS: metroNIDAZOLE INJ 500 MG in PREMIX 1 EACH IV SCH ×3 (11:53→23:08)
[2020-07-11 12:02] LABS: Band Neutrophils 2 % (0-10); Hypochromasia 4+; Lymphocytes 3 % (20-55); Microcytosis 3+; Polychromasia Slight; Segmented Neutrophils 93 % (50-85); Total Cells Counted 100
[2020-07-11 12:03] LABS: Burr Cells Few; Platelet Estimate Decreased; Target Cells 1+
[2020-07-11] MEDS: ACETAMINOPHEN 325 MG TABLET PO PRN (14:59)
[2020-07-11] MEDS: cefTRIAXone 2,000 MG in SYRINGE 1 EACH IV SCH (18:27)
[2020-07-11] MEDS: METOPROLOL TARTRATE 25 MG TABLET PO SCH (21:08)
[2020-07-11] MEDS: MONTELUKAST 10 MG TABLET PO SCH (21:08)
[2020-07-12] MEDS: ALBUTEROL/IPRATROPIUM 3 ML NEB RESP TX SCH ×4 (00:52→20:02)
[2020-07-12] MEDS: metroNIDAZOLE INJ 500 MG in PREMIX 1 EACH IV SCH ×3 (05:45→11:17)
[2020-07-12 07:23] LABS: Basophils % 0.2 % (0.0-0.8); Hematocrit 31.3 VOL% (35.7-47.0); Immature Granulocytes % 2.4 %; Immature Granulocytes Absolute 0.25 #; Lymphocytes # 0.4 10*3/uL (1.4-4.0); Lymphocytes % 3.9 % (21.3-54.2); Mean Corpuscular HGB Conc 28.4 GM/DL (32-36); Mean Corpuscular Volume 80.1 FL (87-102); Monocytes % 7.6 % (1.7-12.7); NRBC # 0.04 10*3/uL; Neutrophils % 85.9 % (38.7-73.9); Red Blood Count 3.91 MC/CUMM (3.8-5.5); Red Cell Distribution Width 26.9 % (9.3-17.3); White Blood Count 10.5 T/CUMM (4-12)
[2020-07-12 07:26] LABS: Hemoglobin 8.9 GM/DL (12.0-16.0)
[2020-07-12 07:27] LABS: Platelet Count 52 T/CUMM (130-400)
[2020-07-12 07:30] LABS: Calcium 9.2 MG/DL (8.5-10.1); Osmolality,Calculated 309.5 MOS/KG (273-304)
[2020-07-12 07:33] LABS: Lymphocytes 8 % (20-55); Nucleated Red Blood Cells 1 (0-5); Platelet Estimate Decreased; Segmented Neutrophils 84 % (50-85); Total Cells Counted 100
[2020-07-12 07:34] LABS: Hypochromasia 1+; Microcytosis Slight
[2020-07-12] MEDS: METOPROLOL TARTRATE 25 MG TABLET PO SCH ×2 (09:09→21:06)
[2020-07-12] MEDS: INSULIN REGULAR 100 UNIT/ML SUBCUT SCH ×4 (09:25→21:06)
[2020-07-12] MEDS: methylPREDNISolone SOD SUC 40 MG/1 ML VIAL IV SCH ×2 (09:25→11:17)
[2020-07-12] MEDS: AMIODARONE 200 MG TABLET PO SCH (09:25)
[2020-07-12] MEDS: allopurinoL 100 MG TABLET PO SCH (09:25)
[2020-07-12] MEDS: ASPIRIN CHEW 81 MG TABLET PO SCH (09:25)
[2020-07-12] MEDS ORDERED: AMOXICILLIN/CLAV 875 MG TABLET PO SCH (11:30)
[2020-07-12] MEDS: CEFUROXIME 500 MG TABLET PO SCH (14:50)
[2020-07-12] MEDS: metroNIDAZOLE 500 MG TABLET PO SCH ×2 (17:50→23:43)
[2020-07-12] MEDS: MONTELUKAST 10 MG TABLET PO SCH (21:06)
[2020-07-13] MEDS: ALBUTEROL/IPRATROPIUM 3 ML NEB RESP TX SCH ×4 (00:59→19:12)
[2020-07-13] MEDS: metroNIDAZOLE 500 MG TABLET PO SCH (06:00)
[2020-07-13 06:28] LABS: Basophils % 0.1 % (0.0-0.8); Hematocrit 25.8 VOL% (35.7-47.0); Hemoglobin 7.4 GM/DL (12.0-16.0); Immature Granulocytes % 3.7 %; Immature Granulocytes Absolute 0.47 #; Lymphocytes # 0.8 10*3/uL (1.4-4.0); Mean Corpuscular HGB Conc 28.7 GM/DL (32-36); Mean Corpuscular Volume 78.7 FL (87-102); NRBC # 0.05 10*3/uL; Neutrophils % 79.2 % (38.7-73.9); Platelet Count 72 T/CUMM (130-400); Red Blood Count 3.28 MC/CUMM (3.8-5.5); Red Cell Distribution Width 26.7 % (9.3-17.3); White Blood Count 12.6 T/CUMM (4-12)
[2020-07-13 06:46] LABS: Eosinophils 1 % (0-10); Lymphocytes 5 % (20-55); Microcytosis 1+; Segmented Neutrophils 80 % (50-85); Total Cells Counted 100
[2020-07-13 06:47] LABS: Acanthocytes Few; Anisocytosis 1+; Calcium 9.3 MG/DL (8.5-10.1); Hypochromasia 2+; Osmolality,Calculated 310.4 MOS/KG (273-304); Platelet Estimate Decreased; Target Cells Slight
[2020-07-13] MEDS: INSULIN REGULAR 100 UNIT/ML SUBCUT SCH ×4 (08:44→20:41)
[2020-07-13 10:41] LABS: Hepatitis B Core IgM Quant 0.08 Index; Hepatitis B Surface Ag Quant 0.21 Index; Hepatitis B Surface Ag Result Negative (Negative); Hepatitis C Virus Ab Quant 0.03 Index; Hepatitis C Virus Ab Result Negative (Negative)
[2020-07-13] MEDS ORDERED: BUPIVACAINE MPF 0.25% 30 ML VIAL ONE (10:50)
[2020-07-13] MEDS ORDERED: LIDOCAINE 1%/EPI INJ 20 ML VIAL ONE (10:50)
[2020-07-13] MEDS ORDERED: HEPARIN 5,000 UNIT/1 ML VIAL ONE (10:50)
[2020-07-13] MEDS ORDERED: TISSUE ADHESIVE 1 EACH APPLICATOR TOP ONE (12:11)
[2020-07-13] MEDS ORDERED: ETOMIDATE 40 MG/20 ML VIAL IV ONE (12:30)
[2020-07-13] MEDS ORDERED: LIDOCAINE 2% 5 ML VIAL ONE (12:30)
[2020-07-13] MEDS: AMIODARONE 200 MG TABLET PO SCH (13:32)
[2020-07-13] MEDS: ASPIRIN CHEW 81 MG TABLET PO SCH (13:32)
[2020-07-13] MEDS: allopurinoL 100 MG TABLET PO SCH (13:32)
[2020-07-13] MEDS: METOPROLOL TARTRATE 25 MG TABLET PO SCH ×2 (13:32→20:43)
[2020-07-13] MEDS ORDERED: SODIUM CHLORIDE 0.9% 1,000 ML IV PRN (14:22)
[2020-07-13] MEDS ORDERED: HEPARIN 10,000 UNIT/10 ML VIAL IV SCH (15:45)
[2020-07-13] MEDS ORDERED: HEPARIN 10,000 UNIT/10 ML VIAL ONE (15:56)
[2020-07-13] MEDS ORDERED: EPOETIN ALFA-EPBX 10,000 UNIT/ML VIAL ONE (15:58)
[2020-07-13] MEDS: MONTELUKAST 10 MG TABLET PO SCH (20:44)
[2020-07-14] MEDS: ALBUTEROL/IPRATROPIUM 3 ML NEB RESP TX SCH ×5 (01:05→19:40)
[2020-07-14 06:25] LABS: Calcium 8.7 MG/DL (8.5-10.1); Osmolality,Calculated 297.5 MOS/KG (273-304)
[2020-07-14] MEDS: CEFUROXIME 500 MG TABLET PO SCH (08:22)
[2020-07-14] MEDS: METOPROLOL TARTRATE 25 MG TABLET PO SCH ×2 (08:22→21:02)
[2020-07-14] MEDS: allopurinoL 100 MG TABLET PO SCH (08:22)
[2020-07-14] MEDS: AMIODARONE 200 MG TABLET PO SCH (08:22)
[2020-07-14] MEDS: ASPIRIN CHEW 81 MG TABLET PO SCH (08:22)
[2020-07-14 08:29] LABS: Basophils % 0.2 % (0.0-0.8); Eosinophils % 0.1 % (0.00-10.9); Hematocrit 26.2 VOL% (35.7-47.0); Hemoglobin 7.5 GM/DL (12.0-16.0); Immature Granulocytes % 1.9 %; Immature Granulocytes Absolute 0.29 #; Lymphocytes # 1.2 10*3/uL (1.4-4.0); Lymphocytes % 7.7 % (21.3-54.2); Mean Corpuscular HGB Conc 28.6 GM/DL (32-36); Mean Corpuscular Volume 78.7 FL (87-102); Monocytes % 10.8 % (1.7-12.7); NRBC # 0.12 10*3/uL; Neutrophils % 79.3 % (38.7-73.9); Platelet Count 78 T/CUMM (130-400); Red Blood Count 3.33 MC/CUMM (3.8-5.5); Red Cell Distribution Width 26.5 % (9.3-17.3); White Blood Count 15.5 T/CUMM (4-12)
[2020-07-14 08:59] LABS: Hypochromasia 2+; Lymphocytes 4 % (20-55); Microcytosis 1+; Nucleated Red Blood Cells 1 (0-5); Ovalocytes Slight; Platelet Estimate Decreased; Segmented Neutrophils 85 % (50-85); Total Cells Counted 100
[2020-07-14] MEDS: INSULIN REGULAR 100 UNIT/ML SUBCUT SCH ×4 (09:09→21:37)
[2020-07-14] MEDS: ACETAMINOPHEN 325 MG TABLET PO PRN (12:50)
[2020-07-14 18:11] LABS: Hematocrit 36.9 VOL% (35.7-47.0); Hemoglobin 10.9 GM/DL (12.0-16.0)
[2020-07-14] MEDS: MONTELUKAST 10 MG TABLET PO SCH (21:02)
[2020-07-15] MEDS: ALBUTEROL/IPRATROPIUM 3 ML NEB RESP TX SCH ×4 (00:46→19:25)
[2020-07-15] MEDS: ACETAMINOPHEN 325 MG TABLET PO PRN ×3 (02:03→18:25)
[2020-07-15 03:46] LABS: Basophils % 0.3 % (0.0-0.8); Eosinophils % 0.1 % (0.00-10.9); Hematocrit 32.5 VOL% (35.7-47.0); Immature Granulocytes % 1.8 %; Immature Granulocytes Absolute 0.27 #; Lymphocytes # 0.8 10*3/uL (1.4-4.0); Lymphocytes % 5.4 % (21.3-54.2); Mean Corpuscular HGB Conc 30.8 GM/DL (32-36); Mean Corpuscular Volume 82.5 FL (87-102); Monocytes % 7.6 % (1.7-12.7); Neutrophils % 84.8 % (38.7-73.9); Platelet Count 63 T/CUMM (130-400); Red Blood Count 3.94 MC/CUMM (3.8-5.5)
[2020-07-15 04:38] LABS: Calcium 8.7 MG/DL (8.5-10.1)
[2020-07-15 04:58] LABS: Hypochromasia Slight; Microcytosis Slight; Platelet Estimate Decreased
[2020-07-15] MEDS: allopurinoL 100 MG TABLET PO SCH (08:05)
[2020-07-15] MEDS: AMIODARONE 200 MG TABLET PO SCH (08:05)
[2020-07-15] MEDS: ASPIRIN CHEW 81 MG TABLET PO SCH (08:05)
[2020-07-15] MEDS: METOPROLOL TARTRATE 25 MG TABLET PO SCH ×2 (08:06→21:26)
[2020-07-15] MEDS: INSULIN REGULAR 100 UNIT/ML SUBCUT SCH ×4 (08:06→21:26)
[2020-07-15] MEDS ORDERED: EPOETIN ALFA-EPBX 10,000 UNIT/ML VIAL ONE (11:10)
[2020-07-15] MEDS ORDERED: HEPARIN 10,000 UNIT/10 ML VIAL ONE (11:11)
[2020-07-15] MEDS: MONTELUKAST 10 MG TABLET PO SCH (21:26)
[2020-07-16] MEDS: ALBUTEROL/IPRATROPIUM 3 ML NEB RESP TX SCH ×2 (00:58→07:17)
[2020-07-16 06:41] LABS: Basophils % 0.2 % (0.0-0.8); Eosinophils # 0.1 10*3/uL (0.0-0.87); Eosinophils % 0.7 % (0.00-10.9); Hematocrit 31.4 VOL% (35.7-47.0); Hemoglobin 9.4 GM/DL (12.0-16.0); Immature Granulocytes % 2.3 %; Immature Granulocytes Absolute 0.34 #; Lymphocytes # 1.2 10*3/uL (1.4-4.0); Lymphocytes % 8.1 % (21.3-54.2); Mean Corpuscular HGB Conc 29.9 GM/DL (32-36); Mean Corpuscular Volume 82.6 FL (87-102); Monocytes % 9.6 % (1.7-12.7); NRBC # 0.15 10*3/uL; Neutrophils % 79.1 % (38.7-73.9); Red Cell Distribution Width 24.3 % (9.3-17.3); White Blood Count 14.7 T/CUMM (4-12)
[2020-07-16 06:47] LABS: Platelet Count 82 T/CUMM (130-400)
[2020-07-16 06:59] LABS: Calcium 9.1 MG/DL (8.5-10.1)
[2020-07-16 07:02] LABS: Anisocytosis 2+; Band Neutrophils 3 % (0-10); Basophilic Stippling Slight; Giant Platelets Few; Lymphocytes 8 % (20-55); Metamyelocytes 1 %; Nucleated Red Blood Cells 3 (0-5); Platelet Estimate Decreased; Segmented Neutrophils 79 % (50-85); Total Cells Counted 100
[2020-07-16 07:03] LABS: Poikilocytosis Slight; Target Cells Few
[2020-07-16] MEDS ORDERED: POTASSIUM CHLORIDE 20 MEQ/15 ML UDCUP PO ONE (08:05)
[2020-07-16 08:36] VITALS: BP 102/40
[2020-07-16] MEDS: ASPIRIN CHEW 81 MG TABLET PO SCH (09:35)
[2020-07-16] MEDS: allopurinoL 100 MG TABLET PO SCH (09:35)
[2020-07-16] MEDS: AMIODARONE 200 MG TABLET PO SCH (09:35)
[2020-07-16] MEDS: INSULIN REGULAR 100 UNIT/ML SUBCUT SCH (09:35)
[2020-07-16] MEDS: METOPROLOL TARTRATE 25 MG TABLET PO SCH (09:35)
[2020-07-16] MEDS: ACETAMINOPHEN 325 MG TABLET PO PRN (10:24)
[2020-07-16] MEDS ORDERED: GABAPENTIN 100 MG CAPSULE PO SCH (21:00)
== END 2020-07-16 10:53 | DRG 871 ==
LOC: EDBD → EDUNIT# → N.ED 17:40 → N.EDINP 22:20 → INTOOBSV 22:20 → N.EDINP 07-06 14:04 → N.2E 07-06 14:31 → SUATTDRO 07-07 14:26 → N.5E 07-11 15:00
PROVIDERS: ADMIT Hospitalist; ATTEND Internal Medicine